=== PATIENT | male | born 1955 | race Caucasian/White ===

== ENCOUNTER 2022-06-07 00:18 | Inpatient (IN) | payer MEDICARE, OTHER, SELFPAY ==
[2022-06-07] VITALS (15 sets, daily range): BP systolic 100–159; BP diastolic 63–84; PULSE 68–96; RESP 16–29; TEMP 36.8–39.4; O2SAT 92–98; BMI 39.9; BMI 39.6
--- NOTE | 2022-06-07 00:48 | CT_ITS ---
STUDY: CT ABDOMEN AND PELVIS WITH CONTRAST REASON FOR EXAM: Male, 67 years old. abd pain RADIATION DOSAGE (If Supplied By Facility): CTDIvol = ( 17.06 ) mGy, DLP = ( 1440.35 ) mGycm TECHNIQUE: Transaxial images were obtained from the dome of the diaphragm to the symphysis pubis without oral contrast. IV 100mL Isovue-300 was administered. Sagittal and coronal images were reconstructed. Individualized dose optimization techniques were used for this CT. COMPARISON: None. FINDINGS: The visualized lung bases are unremarkable. The visualized portions of the heart are within normal limits. Normal liver. Normal gallbladder and extrahepatic biliary system. Normal spleen. Normal pancreas. Normal bilateral adrenal glands. Normal right kidney. Normal left kidney. Normal visualized stomach. Normal small intestine. There is wall thickening with adjacent fat stranding of the descending colon and sigmoid colon suggesting colitis. The appendix is visualized and appears normal. Normal abdominal aorta. Normal inferior vena cava. Enlargement of the left periaortic lymph node the largest lymph node measures approximately 1.9 x 1.2 cm may represent reactive lymphoid hyperplasia. Normal urinary bladder. Normal abdominal wall. Normal osseous structures. CT/Abdomen/Pelvis W IV Cont ONLY IMPRESSION: Multiple bilateral renal cysts the largest measures approximately 2.2 cm. There is wall thickening with adjacent fat stranding of the descending colon and sigmoid colon suggesting colitis. Enlargement of the left periaortic lymph node the largest lymph node measures approximately 1.9 x 1.2 cm. Short-term follow-up is recommended to exclude a neoplastic process. Electronically Signed: Christi Hansen MD at 2:29 EST ,
--- NOTE | 2022-06-07 00:48 | RAD_ITS ---
STUDY: X-RAY CHEST REASON FOR EXAM: Male, 67 years old. fever TECHNIQUE: Single AP portable view of the chest. COMPARISON: None. FINDINGS: Mediporte on the right side. The lungs are clear and expanded. There is no demonstrated pleural abnormality. Normal size heart. Normal mediastinum and gilmar. Normal visualized pulmonary arteries. Normal visualized aortic arch and descending thoracic aorta. Normal visualized thoracic spine. Normal visualized ribs, clavicles, and shoulders. There is no demonstrated abnormality of the visualized soft tissue structures of the upper abdomen. RAD/Chest PA and Lateral IMPRESSION: Normal x-ray examination of the chest. Electronically Signed: Christi Hansen MD at 1:51 EST ,
[2022-06-07 00:56] LABS: Absolute Lymphocyte Count 0.67 X10^3/uL (0.83-4.51); Absolute Neutrophil Count 0.1 X10^3/uL (2.0-7.7); Basophil# 0.01 X10^3/uL; Basophil% 0.9 % (0-1); Eosinophil# 0.02 X10^3/uL; Eosinophils% 1.8 % (0-5); Hematocrit 36.5 % (40-54); Hemoglobin 12.1 g/dL (13.0-16.5); Lymphocyte # 0.67 X10^3/ul (0.83-4.51); Lymphocyte % 60.4 % (19-41); Mean Corp Hgb Conc 33.2 g/dL (32-36); Mean Corpuscular Hgb 28.2 pg (27.0-32.0); Mean Corpuscular Volume 85.1 fL (80-94); Mean Platelet Vol. 10.8 fl (6.2-12.0); Monocyte# 0.35 X10^3/uL; Monocyte% 31.5 % (0-10); NRBC Flagged by Analyzer 0 % (0-5); Neutrophil # 0.06 X10^3/uL (2.7-7.7); Neutrophil % 5.4 % (47-70); POSITIVE COUNT YES; POSITIVE DIFFERENTIAL YES; POSITIVE MORPHOLOGY YES; Platelet Count 174 K/mm3 (150-450); RBC Distribution Width CV 14.6 % (11.6-14.6); RBC Distribution Width SD 44.9 fl (35.1-43.9); Red Blood Count 4.29 M/mm3 (4.6-6.2)
[2022-06-07 01:02] LABS: Mucous, Urine 0 SEEN /hpf (<or=2+); Squamous Epithelial Cells - UA 0 SEEN /hpf (0-5)
[2022-06-07 01:06] LABS: Anion Gap 8 (5-15); BUN 18 mg/dL (7-18); BUN/Creat Ratio 12.2 RATIO (10-20); Calcium,Total 8.5 mg/dL (8.5-10.1); Chloride 105 mmol/L (98-107); Creatinine, Serum 1.48 mg/dL (0.70-1.30); EST Glomerular Filtration Rate 51 mL/min (>60); Est Glom Filt Rate - Afr Amer 61 mL/min (>60); Estimated Creatinine Clearance 48.14 ml/min; Glucose 127 mg/dL (74-106); Potassium 3.4 mmol/L (3.5-5.1); Sodium Level 137 mmol/L (136-145)
[2022-06-07 01:08] LABS: Color, Urine Amber (Yellow); Glucose, Dipstick Normal (Normal); Ketone-Dipstick 5 mg/dl (Negative); Leukocyte Esterase-Dipstick 25 /ul (Negative); Nitrite-Dipstick Negative (Negative); Occult Blood-Urine 150 /ul (Negative); Protein-Dipstick 100 mg/dl (Negative); Urine Clarity Sl. Cloudy (Clear); Urine Urobilinogen 4 mg/dl (Normal)
[2022-06-07 01:10] LABS: Differential Indicated SCAN CRITERIA MET; White Blood Count 1.1 K/mm3 (4.4-11.0)
[2022-06-07 01:12] LABS: Differential Comment SCANNED
[2022-06-07] MEDS: Acetaminophen 500 MG Tablet 1000 MG PO (01:12)
[2022-06-07 01:14] LABS: Lactic Acid 1.1 mmol/L (0.4-1.9)
[2022-06-07] MEDS: 0.9% Normal Saline 1,000 ML 999 ML IV (01:16)
[2022-06-07 01:22] LABS: Urine Bilirubin Dipstick 1 mg/dL (Negative)
[2022-06-07 01:24] LABS: Amorphous Sediment 1+; Bacteria 3+ /hpf (None Seen); Red Blood Cells-Urine 5-10 SEEN /hpf (0-5); White Blood Cells 0-5 SEEN /hpf (0-5)
--- NOTE | 2022-06-07 02:56 | EX.ED.DYSGE1 ---
HPI History of Present Illness Chief Complaint: Fever Narrative Narrative: Patient is a 67-year-old male with past medical history of prostate cancer hypertension and gout. He states that he had his prostate removed in 2000 but over the last few years has been having elevation to his PSA and was diagnosed with recurrent prostate cancer and was failing Lupron shot so he was started on chemotherapy. He states his first chemotherapy injection was 1 week ago on May 30. He states that he seemed to be doing okay with persistent nausea and loose stool which he felt was normal following his chemo. However this evening he did not feel well and family took his temperature at home and it was elevated 103 and secondary to this he was brought to the hospital for evaluation [facility] Medical History Bone cancer CHF (congestive heart failure) Hyperlipemia Hypertension Prostate CA Home Medications abiraterone 500 mg tablet 1,000 mg PO DAILY 06/07/22 [History Last Taken Unknown] allopurinol 100 mg tablet 100 mg PO DAILY 06/07/22 [History Last Taken Unknown] aspirin 81 mg tablet,delayed release 81 mg PO DAILY 06/07/22 [History Last Taken Unknown] carvedilol 25 mg tablet 25 mg PO BID 06/07/22 [History Last Taken Unknown] dexamethasone 4 mg tablet 4 mg PO BID 06/07/22 [History Last Taken Unknown] ezetimibe 10 mg tablet 10 mg PO DAILY 06/07/22 [History Last Taken Unknown] furosemide 40 mg tablet 40 mg PO DAILY 06/07/22 [History Last Taken Unknown] isosorbide mononitrate 60 mg tablet,extended release 24 hr 60 mg PO DAILY 06/07/22 [History Last Taken Unknown] prednisone 5 mg tablet 5 mg PO BID 06/07/22 [History Last Taken Unknown] prochlorperazine maleate 10 mg tablet 10 mg PO Q6H PRN Nausea 06/07/22 [History Last Taken Unknown] rosuvastatin 20 mg tablet 20 mg PO DAILY 06/07/22 [History Last Taken Unknown] Allergy/AdvReac Type Severity Reaction Status Date / Time No Known Allergies Allergy Verified 06/07/22 00:21 Social History Smoking Status: Never smoker ROS [facility] ED Constitutional Constitutional ED: Reports chills and fever(s) ENT ENT ED: Denies sore throat Cardiovascular Cardiovascular: Denies chest pain Respiratory/Chest Respiratory/Chest: Reports cough; Denies dyspnea Gastrointestinal Gastrointestinal: Reports diarrhea and nausea; Denies abdominal pain or vomiting Genitourinary Genitourinary ED: Denies dysuria Musculoskeletal Musculoskeletal: Reports myalgias Integumentary Denies rash Neurologic Neurologic: Denies headache(s) Hematologic/Lymphatic Hematologic/Lymphatic: Denies easy bleeding or easy bruising EXAM Physical Exam Const Vital Signs: 06/07/22 00:19 06/07/22 00:21 06/07/22 00:23 Temperature 103 F H 103 F H Temperature Source Oral Oral Pulse Rate 96 93 Respiratory Rate 22 H 22 H Respiratory Effort Normal Non-Labored Respiratory Pattern Normal Blood Pressure 148/76 H 148/76 H Blood Pressure Mean 100 100 Pulse Ox 95 95 Oxygen Delivery Method Room Air Room Air 06/07/22 01:19 06/07/22 02:00 06/07/22 03:57 Temperature 100.1 F H Temperature Source Oral Pulse Rate 84 81 Respiratory Rate 29 H 21 H 16 Respiratory Effort Respiratory Pattern Blood Pressure 114/64 119/65 Blood Pressure Mean 80 83 Pulse Ox 94 93 Oxygen Delivery Method Room Air Room Air 06/07/22 04:45 06/07/22 04:46 Temperature 99.1 F Temperature Source Oral Pulse Rate 82 Respiratory Rate 24 H Respiratory Effort Respiratory Pattern Blood Pressure 148/73 H 148/73 H Blood Pressure Mean 98 98 Pulse Ox 97 Oxygen Delivery Method Room Air Positive well nourished, well developed and obese General Appearance ED: well developed Nutritional Appearance: obese HEENT Reports dry mucous membranes HEENT Narrative: Mucous membranes are dry and tacky without secondary changes to suggest infection and no airway edema or compromise Mouth ED: Yes dry mucous membranes Mouth: dry mucous membranes Eyes PERRL and EOMs intact bilaterally Neck supple and no JVD Chest Wall palpation of chest normal Chest Narrative: Patient has a port in the right chest wall with surrounding soft tissue that appears normal without secondary changes to suggest infection Resp Resp Narrative: Breath sounds are slight diminished throughout with faint rhonchi noted in bilateral bases but otherwise no nasal flaring or retractions. Patient does have mild tachypnea noted Cardio regular rate and regular rhythm Rate: other Other Details: Radial pulses are plus 2 out of 4 bilaterally are equal and symmetric GI non-tender, non-distended and no masses GI Narrative: Abdomen is soft nontender nondistended with hyperactive bowel sounds no voluntary guarding or rigidity no pulsatile mass or fluid Auscultation: normoactive bowel sounds Palpation: soft Extremity normal to inspection Neuro oriented x3 and CN's II-XII intact bilaterally Sensorium / Orientation: alert Psych mental status grossly normal Skin no rashes or lesions noted Skin Narrative: Skin turgor is increased MDM MDM MDM Narrative Medical decision making narrative: Patient is a 67-year-old male who is immunosuppressed secondary to chemotherapy. He presented with a fever of 103 and there was concern for neutropenic fever secondary to this. Basic blood work along with blood cultures and urine cultures as well as COVID and influenza swabs were obtained because of the fever. His white count is low at 1.1 and he is neutropenic with an absolute neutrophil count of 0.1. Secondary to his temperature and these findings he was started on vancomycin and Zosyn. He has been having a cough but his chest x-ray officially revealed no obvious infiltrate. He also reported loose stool/diarrhea so CT of the abdomen pelvis was obtained which showed changes consistent with colitis which could be inflammatory or infectious in nature. Urine sample showed bacteria but there is no white blood cells and patient has no urinary symptoms. At this time because of the neutropenic fever he is not safe for discharge even though vitals are stable and his temperature is improved with Tylenol. The case was discussed with oncology Dr. Garcia who agrees with admission and recommends 1 g of meropenem be added as well as 480 mcg of Granix. At this time the patient will need to be monitored in the hospital secondary to his neutropenic fever while antibiotics continue to be given and blood cultures and urine cultures are resulted. Because of this the case was discussed with medicine on-call. They agreed accept the patient at this time. As he is hemodynamically stable he does not need ICU will be placed in the progressive care unit for further observation and treatment. The plan of care was discussed with patient and family and they are agreeable to it. Lab Data Attestation: I reviewed the patient's lab results. Labs: Laboratory Results - last 24 hr 06/07/22 06/07/22 06/07/22 00:33 00:33 00:33 WBC 1.1 L* RBC 4.29 L Hgb 12.1 L Hct 36.5 L MCV 85.1 MCH 28.2 MCHC 33.2 RDW Std Deviation 44.9 H RDW Coeff of Tyler 14.6 Plt Count 174 MPV 10.8 Immature Gran % (Auto) 0.000 Neut % (Auto) 5.4 L Lymph % (Auto) 60.4 H [place] % (Auto) 31.5 H Eos % (Auto) 1.8 Baso % (Auto) 0.9 Absolute Neuts (auto) 0.1 L Absolute Lymphs (auto) 0.67 L Nucleated RBC % 0 Differential Comment SCANNED Diff Path Review May foll Sodium 137 Potassium 3.4 L Chloride 105 Carbon Dioxide 24.0 Anion Gap 8 BUN 18 Creatinine 1.48 H Estim Creat Clear Calc 48.14 Est GFR (MDRD) Af Amer 61 Est GFR (MDRD) Non-Af 51 L BUN/Creatinine Ratio 12.2 Glucose 127 H Lactic Acid 1.1 Calcium 8.5 Urine Color Urine Clarity Urine pH Ur Specific [place] Urine Protein Urine Glucose (UA) Urine Ketones Urine Occult Blood Urine Nitrite Urine Bilirubin Urine Urobilinogen Ur Leukocyte Esterase Urine RBC Urine WBC Ur Squamous Epith Cells Amorphous Sediment Urine Bacteria Urine Mucus 06/07/22 00:37 WBC RBC Hgb Hct MCV MCH MCHC RDW Std Deviation RDW Coeff of [place] Plt Count MPV Immature Gran % (Auto) Neut % (Auto) Lymph % (Auto) [place] % (Auto) Eos % (Auto) Baso % (Auto) Absolute Neuts (auto) Absolute Lymphs (auto) Nucleated RBC % Differential Comment Diff Path Review Sodium Potassium Chloride Carbon Dioxide Anion Gap BUN Creatinine Estim Creat Clear Calc Est GFR (MDRD) Af Amer Est GFR (MDRD) Non-Af BUN/Creatinine Ratio Glucose Lactic Acid Calcium Urine Color Genny Urine Clarity Sl. Cloudy Urine pH 6.0 Ur Specific [place] 1.020 Urine Protein 100 H Urine Glucose (UA) Normal Urine Ketones 5 H Urine Occult Blood 150 H Urine Nitrite Negative Urine Bilirubin 1 H Urine Urobilinogen 4 H Ur Leukocyte Esterase 25 H Urine RBC 5-10 SEEN Urine WBC 0-5 SEEN Ur Squamous Epith Cells 0 SEEN Amorphous Sediment 1+ Urine Bacteria 3+ Urine Mucus 0 SEEN Radiography Diagnostic Testing: Clinical Impression(s) from Imaging Studies Abdomen/Pelvis CT 06/07/22 00:48 IMPRESSION: Multiple bilateral renal cysts the largest measures approximately 2.2 cm. There is wall thickening with adjacent fat stranding of the descending colon and sigmoid colon suggesting colitis. Enlargement of the left periaortic lymph node the largest lymph node measures approximately 1.9 x 1.2 cm. Short-term follow-up is recommended to exclude a neoplastic process. Electronically Signed: Christi Hansen MD at 2:29 EST , Chest X-Ray 06/07/22 00:48 IMPRESSION: Normal x-ray examination of the chest. Electronically Signed: Christi Hansen MD at 1:51 EST , Chest x-ray as interpreted by the emergency medicine physician reveals hazy opacity in the retrocardiac space concerning for developing pneumonia versus atelectasis Discharge Plan Triage Chief Complaint: Fever ED Provider: Deacon Castillo Dx/Rx/DC Orders Clinical Impression: Neutropenic fever, Prostate cancer metastatic to bone, Colitis, Hypertension Primary Care Provider: Dulce Sood Disposition Disposition: Acute Care [facility]
[2022-06-07] MEDS: TBO-FILGRASTIM 480 MCG/0.8 ML ML SC (04:39)
--- NOTE | 2022-06-07 05:08 | HP.PCM.HOS_ITS ---
HPI - General General Date of Admission: 06/07/22 Date of Service: 06/07/22 Chief Complaint: Fever HPI Narrative TORIE GOLDEN, is a 67 M with a significant history of prostate cancer status post prostatectomy and Lupron for metastatic lesions who was started on a chemotherapy on 05/30/2022 presenting with a fever. Of note patient had a port placed 3 to 4 weeks ago. Associated with his symptoms is intermittent cough, nausea, and loose stools. Last time he had loose stools was about a day and a half prior to presentation. His was going to give him a kiss and realized that patient has a fever. Patient's home temperature was 103 Fahrenheit. Associated with symptom is chills and rigors. His temperature at the emergency department was also 103 Fahrenheit. Emergency department discussed the case with oncology who recommended Granix and meropenem. [facility] Medical History Bone cancer CHF (congestive heart failure) Hyperlipemia Hypertension Prostate CA Sleep apnea Home Medications abiraterone 500 mg tablet 1,000 mg PO DAILY 06/07/22 [History Last Taken Unkno wn] allopurinol 100 mg tablet 100 mg PO DAILY 06/07/22 [History Last Taken Unknown] aspirin 81 mg tablet,delayed release 81 mg PO DAILY 06/07/22 [History Last Taken Unknown] carvedilol 25 mg tablet 25 mg PO BID 06/07/22 [History Last Taken Unknown] dexamethasone 4 mg tablet 4 mg PO BID 06/07/22 [History Last Taken Unknown] ezetimibe 10 mg tablet 10 mg PO DAILY 06/07/22 [History Last Taken Unknown] furosemide 40 mg tablet 40 mg PO DAILY 06/07/22 [History Last Taken Unknown] isosorbide mononitrate 60 mg tablet,extended release 24 hr 60 mg PO DAILY 06/07/22 [History Last Taken Unknown] prednisone 5 mg tablet 5 mg PO BID 06/07/22 [History Last Taken Unknown] prochlorperazine maleate 10 mg tablet 10 mg PO Q6H PRN Nausea 06/07/22 [History Last Taken Unknown] rosuvastatin 20 mg tablet 20 mg PO DAILY 06/07/22 [History Last Taken Unknown] Allergy/AdvReac Type Severity Reaction Status Date / Time No Known Allergies Allergy Verified 06/07/22 05:57 Family History Other CVA (cerebral vascular accident) Cancer Diabetes Heart disease Hypertension Surgical History History of prostatectomy Social History Smoking Status: Never smoker ROS ROS Narrative Pertinent positives and pertinent negatives as noted in HPI. All other systems were reviewed and are negative Vital Signs Vital Signs Vital Signs: 06/07/22 00:19 06/07/22 00:21 06/07/22 00:23 Temperature 103 F H 103 F H Temperature Source Oral Oral Pulse Rate 96 93 Respiratory Rate 22 H 22 H Respiratory Effort Normal Non-Labored Respiratory Pattern Normal Blood Pressure 148/76 H 148/76 H Blood Pressure Mean 100 100 Pulse Ox 95 95 Oxygen Delivery Method Room Air Room Air 06/07/22 01:19 06/07/22 02:00 06/07/22 03:57 Temperature 100.1 F H Temperature Source Oral Pulse Rate 84 81 Respiratory Rate 29 H 21 H 16 Respiratory Effort Respiratory Pattern Blood Pressure 114/64 119/65 Blood Pressure Mean 80 83 Pulse Ox 94 93 Oxygen Delivery Method Room Air Room Air 06/07/22 04:45 06/07/22 04:46 Temperature 99.1 F Temperature Source Oral Pulse Rate 82 Respiratory Rate 24 H Respiratory Effort Respiratory Pattern Blood Pressure 148/73 H 148/73 H Blood Pressure Mean 98 98 Pulse Ox 97 Oxygen Delivery Method Room Air Weight Weight: 119.1 kg Body Mass Index (BMI) 39.9 Physical Exam Narrative Physical exam: General: Rigors well-nourished, well-developed. Head: Normocephalic, atraumatic, no tenderness Eyes: Vision is grossly intact. EOMI ENT, no trauma, dry mucous membranes, no rhinorrhea Neck: Nontender, No thyromegaly. CVS: Regular rate and rhythm. S1-S2 present. No murmur, gallop or rub. Respiratory : clear to auscultation bilaterally, chest wall nontender, no wheezing Abdomen: Soft, nontender, nondistended, normal bowel sounds, no masses : Deferred Back: Nontender, no CVA tenderness, no midline spinal tenderness, deformities, step-offs Extremities: Nontender full range of motion, no trauma Skin: Normal color, no trauma, abrasions Neuro: Alert, oriented, cranial nerves II through XII grossly intact. Psychiatry: Normal mood. Normal affect. Not depressed. Not anxious. Results Lab / Micro Data Result Diagrams: 06/07/22 00:33 06/07/22 00:33 Labs: Laboratory Results - last 24 hr 06/07/22 00:33: WBC 1.1 L*, RBC 4.29 L, Hgb 12.1 L, Hct 36.5 L, MCV 85.1, MCH 28.2, MCHC 33.2, RDW Std Deviation 44.9 H, RDW Coeff of Tyler 14.6, Plt Count 174, MPV 10.8, Immature Gran % (Auto) 0.000, Neut % (Auto) 5.4 L, Lymph % (Auto) 60.4 H, [place] % (Auto) 31.5 H, Eos % (Auto) 1.8, Baso % (Auto) 0.9, Absolute Neuts (auto) 0.1 L, Absolute Lymphs (auto) 0.67 L, Nucleated RBC % 0, Differential Comment SCANNED, Diff Path Review September06/07/22 00:33: Sodium 137, Potassium 3.4 L, Chloride 105, Carbon Dioxide 24.0, Anion Gap 8, BUN 18, Creatinine 1.48 H, Estim Creat Clear Calc 48.14, Est GFR (MDRD) Af Amer 61, Est GFR (MDRD) Non-Af 51 L, BUN/Creatinine Ratio 12.2, Glucose 127 H, Calcium 8.5 06/07/22 00:33: Lactic Acid 1.1 06/07/22 00:37: Urine Color Genny, Urine Clarity Sl. Cloudy, Urine pH 6.0, Ur Specific [place] 1.020, Urine Protein 100 H, Urine Glucose (UA) Normal, Urine Ketones 5 H, Urine Occult Blood 150 H, Urine Nitrite Negative, Urine Bilirubin 1 H, Urine Urobilinogen 4 H, Ur Leukocyte Esterase 25 H, Urine RBC 5-10 SEEN, Urine WBC 0-5 SEEN, Ur Squamous Epith Cells 0 SEEN, Amorphous Sediment 1+, Urine Bacteria 3+, Urine Mucus 0 SEEN Micro: Microbiology 06/07/22 00:55 Nasal Secretion SARS-CoV-2 & FLU Antigen (Rapid) - Final Radiology Impression Abdomen/Pelvis CT 06/07/22 00:48 IMPRESSION: Multiple bilateral renal cysts the largest measures approximately 2.2 cm. There is wall thickening with adjacent fat stranding of the descending colon and sigmoid colon suggesting colitis. Enlargement of the left periaortic lymph node the largest lymph node measures approximately 1.9 x 1.2 cm. Short-term follow-up is recommended to exclude a neoplastic process. Electronically Signed: Christi Hansen MD at 2:29 EST , Chest X-Ray 06/07/22 00:48 IMPRESSION: Normal x-ray examination of the chest. Electronically Signed: Christi Hansen MD at 1:51 EST , Assessment & Plan Assessment/Plan (1) Neutropenic fever: (2) FREDA (acute kidney injury): (3) Hypertension: PLAN: Plan Neutropenic fever Patient with absolute neutrophil count of 100 with white count of 1100. Of note his white count on 05/30/2022 was 20,260. T-max of 103 Fahrenheit at emergency department. Chest x-ray was interpreted independently. I agree with the radiologist interpretation of normal x-ray examination of the chest. Urinalysis with urine protein of 100; ketones of 5; urine occult blood of 150; urine leukocyte esterase of 25; normal urine white blood cells and urine bacteria of 3+. Denies any urinary symptoms. Urine culture and blood culture ordered emergency department, follow. SARS-CoV-2 and influenza antigen negative. Received vancomycin and Zosyn at the emergency department. Also received Merrem at the emergency department. Merrem 1 g every 8 hours ordered per heme-onc r ecommendations. Granix daily ordered per heme-onc recommendations. Heme-onc consult. Trend CBC. FREDA on CKD stage II His creatinine presentation on presentation was 1.48. BUN is 18. BUN over creatinine is 12.2. Review of community records show that his creatinine on 05/08/2022 was 1.29 and on 05/04/2022 was 1.18. Mild FREDA. Gentle IV hydration. Avoid nephrotoxic's. Trend BMP. Hypertension Blood pressure is not within goal Metoprolol and isosorbide continued. Lasix held as needed hydralazine ordered. Trend blood pressure and adjust blood pressure medications. DVT prophylaxis: Subcutaneous Lovenox ordered Charges/Coding Visit Charges Inpatient E&M: 46664 Init Hosp L3
[2022-06-07] MEDS: 0.9% Normal Saline 1,000 ML 100 ML IV ×2 (06:14→16:53)
[2022-06-07] MEDS: Enoxaparin 40 MG/0.4 ML Syringe SC (08:47)
[2022-06-07] MEDS: Acetaminophen 325 MG Tablet 650 MG PO ×2 (08:47→16:52)
[2022-06-07] MEDS: Ezetimibe 10 MG Tablet PO (08:48)
[2022-06-07] MEDS: dexAMETHasone 4 MG Tablet PO ×2 (08:48→16:54)
[2022-06-07] MEDS: Carvedilol 25 MG Tablet PO ×2 (08:48→16:54)
[2022-06-07] MEDS: Isosorbide Mononitrate 60 MG Tablet PO (08:48)
[2022-06-07] MEDS: Allopurinol 100 MG Tablet PO (08:48)
[2022-06-07] MEDS: Aspirin E.C. 81 MG Tablet PO (08:48)
--- NOTE | 2022-06-07 12:44 | CASEMGMT ---
RN?CM?RODDING MACHINE TENDER?CM?spoke with patient for initial transition planning/care coordination?assessment.?RN?CM?introduced self and role at [facility].? Pt voices understanding and consents to?assessment?at this time.? Pt is A/O at this time and answers all questions appropriately.?? Care providers, pharmacy, and demographics verified/updated at this time.? PCP:?Dr Amber Sood Specialists:?Dr Carmona-oncology, Dr Mandujano-nephrology, [place]. Dr Arriaga-cardiology, [facility] Preferred Pharmacy:?[facility] Insurance:?MCR, MMO Prescription Benefit:??Yes Living Will/HPOA:??Has both LW and HCPOA, who is his , Jazzy. Dtr, Cori, 1st alternative. LNOK:?, Jazzy. 3 sons: Orion, Zurdo, Juan F. Daughter: Cori. Living Arrangements:?Lives w/ in ranch-style home w/2 steps to enter. Denies difficulty w/stairs. Independent. Transportation:?Pt states drives self and states no transportation concerns at this time.?? also drives DME: ?Uses a CPAP HHC/SNF:?No hx of either. Denies need for HHC. Pt wishes to return home and states has no concerns with going home at time of discharge.??CM?to follow for any discharge planning needs.? Pt voices no concerns/needs at this time.? Advised pt to ask for?CM?if any questions/concerns/needs arise.? Voices understanding.? PLAN:??Home Vidal HERRERAN?RN?CM
[2022-06-07] MEDS: Ensure Plus High Protein 120 ML LIQUID PO ×2 (13:29→16:58)
[2022-06-07] MEDS: Atorvastatin Calcium 40 MG Tablet PO (21:38)
[2022-06-08] VITALS (7 sets, daily range): BP systolic 127–140; BP diastolic 67–73; PULSE 63–71; RESP 16–22; TEMP 36.6–37; O2SAT 92–96
[2022-06-08] MEDS: 0.9% Normal Saline 1,000 ML 100 ML IV (02:56)
[2022-06-08 05:41] LABS: Absolute Lymphocyte Count 0.35 X10^3/uL (0.83-4.51); Absolute Neutrophil Count 0.8 X10^3/uL (2.0-7.7); Basophil# 0.03 X10^3/uL; Basophil% 1.7 % (0-1); Hematocrit 31.4 % (40-54); Hemoglobin 10.3 g/dL (13.0-16.5); Lymphocyte # 0.35 X10^3/ul (0.83-4.51); Lymphocyte % 20.1 % (19-41); Mean Corp Hgb Conc 32.8 g/dL (32-36); Mean Corpuscular Hgb 28.1 pg (27.0-32.0); Mean Corpuscular Volume 85.8 fL (80-94); Mean Platelet Vol. 10.3 fl (6.2-12.0); Monocyte% 28.7 % (0-10); NRBC Flagged by Analyzer 0 % (0-5); Neutrophil # 0.81 X10^3/uL (2.7-7.7); Neutrophil % 46.6 % (47-70); POSITIVE DIFFERENTIAL YES; POSITIVE MORPHOLOGY YES; Platelet Count 121 K/mm3 (150-450); RBC Distribution Width CV 14.3 % (11.6-14.6); RBC Distribution Width SD 44.5 fl (35.1-43.9); Red Blood Count 3.66 M/mm3 (4.6-6.2); White Blood Count 1.7 K/mm3 (4.4-11.0)
[2022-06-08 05:47] LABS: Differential Indicated SCAN CRITERIA MET
[2022-06-08 06:04] LABS: Anion Gap 9 (5-15); BUN 19 mg/dL (7-18); BUN/Creat Ratio 17.6 RATIO (10-20); Calcium,Total 7.9 mg/dL (8.5-10.1); Chloride 108 mmol/L (98-107); Creatinine, Serum 1.08 mg/dL (0.70-1.30); EST Glomerular Filtration Rate 73 mL/min (>60); Est Glom Filt Rate - Afr Amer 88 mL/min (>60); Estimated Creatinine Clearance 65.97 ml/min; Glucose 144 mg/dL (74-106); Potassium 3.5 mmol/L (3.5-5.1); Sodium Level 138 mmol/L (136-145)
[2022-06-08 06:13] LABS: Differential Comment SCANNED; Platelet Estimate SLT DEC (ADEQ)
[2022-06-08] MEDS: Aspirin E.C. 81 MG Tablet PO (08:17)
[2022-06-08] MEDS: Carvedilol 25 MG Tablet PO ×2 (08:17→17:19)
[2022-06-08] MEDS: Enoxaparin 40 MG/0.4 ML Syringe SC (08:17)
[2022-06-08] MEDS: Ezetimibe 10 MG Tablet PO (08:17)
[2022-06-08] MEDS: dexAMETHasone 4 MG Tablet PO ×2 (08:17→17:19)
[2022-06-08] MEDS: Isosorbide Mononitrate 60 MG Tablet PO (08:17)
[2022-06-08] MEDS: Allopurinol 100 MG Tablet PO (08:17)
[2022-06-08] MEDS: Ensure Plus High Protein 120 ML LIQUID PO ×3 (08:21→17:18)
[2022-06-08] MEDS: TBO-FILGRASTIM 480 MCG/0.8 ML ML SC (08:21)
[2022-06-08 10:10] LABS: Pathologist Review Reviewed
--- NOTE | 2022-06-08 11:44 | PN.HOSP_ITS ---
Subjective Subjective Doing well, denies any abdominal pain. No issues overnight Objective Data Objective Data Vital Signs: Vital Signs Temp Pulse Resp BP Pulse Ox O2 Del Method 98.5 F 63 22 H 130/73 H 93 Room Air 06/08/22 08:13 06/08/22 08:13 06/08/22 08:13 06/08/22 08:13 06/08/22 08:13 06/08/22 08:13 Oxygen Delivery Method Room Air Weight: 261 lb 0.437 oz Body Mass Index (BMI) 39.6 Intake & Output: Intake and Output for Last 24 Hours 06/07/22 06/08/22 06/09/22 03:59 03:59 03:59 Intake Total 50 / 50 4495 / 4495 Balance 50 / 50 4495 / 4495 Medical Nutrition Assessment Dietitian: Malnutrition Criteria Met Start: 06/07/22 13:46 Freq: Status: Active Protocol: Document 06/07/22 13:46 AG (Rec: 06/07/22 13:47 AG [id number]) Nutrition Malnutrition Evidence of Malnutrition Exists Yes Malnutrition (severe): Acute Illness/Injury Evidenced By Suboptimal Energy Intake ( Severe),Weight Loss (Severe) Clinical Problem Acute Disease or Injury Related Malnutrition Etiology severe, acute malnutrition related to inadequate energy intake after chemotherapy Signs/Symptoms as evidenced by estimated PO intake meeting <50% of estimated energy needs x 1 week; unintentional wt loss of 9#/3.3% x 1 week Status Active Problem Recommendation Dietitian Recommendations/Changes will liberalize diet to regular given acute malnutrition; will adjust ONS to Ensure Plus High Protein 120mL 4x/day Lab / Micro Data Result Diagrams: 06/08/22 04:36 06/08/22 04:36 Labs: Laboratory Results - last 24 hr 06/07/22 00:33: Diff Path Review Reviewed 06/08/22 04:36: Sodium 138, Potassium 3.5, Chloride 108 H, Carbon Dioxide 21.0, Anion Gap 9, BUN 19 H, Creatinine 1.08, Estim Creat Clear Calc 65.97, Est GFR (MDRD) Af Amer 88, Est GFR (MDRD) Non-Af 73, BUN/Creatinine Ratio 17.6, Glucose 144 H, Calcium 7.9 L 06/08/22 04:36: WBC 1.7 L, RBC 3.66 L, Hgb 10.3 L, Hct 31.4 L, MCV 85.8, MCH 28.1, MCHC 32.8, RDW Std Deviation 44.5 H, RDW Coeff of Tyler 14.3, Plt Count 121 L, MPV 10.3, Immature Gran % (Auto) 2.900 H, Neut % (Auto) 46.6 L, Lymph % (Auto) 20.1, Carver % (Auto) 28.7 H, Eos % (Auto) 0.0, Baso % (Auto) 1.7 H, Absol noe Neuts (auto) 0.8 L, Absolute Lymphs (auto) 0.35 L, Nucleated RBC % 0, Differential Comment SCANNED, Platelet Estimate SLT DEC Micro: Microbiology 06/07/22 00:37 Urine, Clean Catch Urine Culture - Preliminary Culture exhibits no growth. 06/07/22 00:55 Nasal Secretion SARS-CoV-2 & FLU Antigen (Rapid) - Final Physical Exam Narrative General: Alert, Oriented x3, Cooperative, No apparent distress HEENT: Atraumatic, PERRLA, EOMI, Normocephalic Oral: Moist Mucosa Neck: Supple, No JVD Lungs: Diminished n, Normal air movement, No rhonchi, No wheeze, No rales Cardiovascular: Regular rate, Regular Rhythm, Normal S1, Normal S2, No murmurs Abdomen: Soft, Non Tender, Non-Distended, No Hepato-splenomegaly Extremities: No edema, Capillary Refill Less than 3 Seconds Skin: No rashes, No breakdown Musculoskeletal: No Tenderness to Palpation of Joints or Extremities Neurological: Cranial nerves II-XII grossly intact, Motor Exam 5/5 strength throughout, Sensory exam intact to light touch and pain Psych/Mental Status: Normal Affect, Appropriate Assessment & Plan Assessment/Plan (1) Neutropenic fever: (2) FREDA (acute kidney injury): (3) Hypertension: PLAN: Plan 1. Neutropenic fever secondary to infectious colitis/FREDA ? We will continue with p.o. antibiotics on discharge ? Continue with Granix, once his white count is greater than the thousand and his fevers have resolved, can plan for discharge ? Denies any significant abdominal pain ? Continue with his current antibiotics ? Renal function is back to baseline continue with IV fluids 2. HTN/HLD ? Blood pressures are stable ? Continue with his home cholesterol medications ? Continue his home blood pressure medications ? Given his IV fluids will hold Lasix 3. Prostate cancer ? He is status post prostatectomy several years ago ? PSA started rising recently so he started on chemotherapy received his first dose about 7 to 10 days prior to admission to the hospital ? Continue with his Decadron as well as his abiraterone ? Continue with allopurinol DVT: Lovenox Charges/Coding Visit Charges Inpatient E&M: 02762 Subs Hosp L2
[2022-06-08] MEDS: Atorvastatin Calcium 40 MG Tablet PO (20:52)
[2022-06-08] MEDS: 0.9% Saline Lock 10 ML Syringe IV (22:04)
[2022-06-09] MEDS: MELATONIN 3 MG TABLET PO (01:03)
[2022-06-09 03:00] VITALS: BP 129/62; PULSE 69; RESP 16; TEMP 37; O2SAT 95
[2022-06-09 07:27] LABS: Anion Gap 5 (5-15); BUN 24 mg/dL (7-18); BUN/Creat Ratio 22.9 RATIO (10-20); Calcium,Total 8.3 mg/dL (8.5-10.1); Chloride 113 mmol/L (98-107); Creatinine, Serum 1.05 mg/dL (0.70-1.30); EST Glomerular Filtration Rate 75 mL/min (>60); Est Glom Filt Rate - Afr Amer 91 mL/min (>60); Estimated Creatinine Clearance 67.86 ml/min; Glucose 162 mg/dL (74-106); Potassium 3.7 mmol/L (3.5-5.1); Sodium Level 141 mmol/L (136-145)
[2022-06-09 07:56] VITALS: BP 150/88; PULSE 66; RESP 18; TEMP 36.7; O2SAT 96
[2022-06-09 08:02] VITALS: O2SAT 94
[2022-06-09] MEDS: Allopurinol 100 MG Tablet PO (08:03)
[2022-06-09] MEDS: Aspirin E.C. 81 MG Tablet PO (08:03)
[2022-06-09] MEDS: dexAMETHasone 4 MG Tablet PO (08:03)
[2022-06-09] MEDS: Carvedilol 25 MG Tablet PO (08:04)
[2022-06-09 08:21] LABS: Hematocrit 33.5 % (40-54); Hemoglobin 10.9 g/dL (13.0-16.5); Mean Corp Hgb Conc 32.5 g/dL (32-36); Mean Corpuscular Hgb 27.9 pg (27.0-32.0); Mean Corpuscular Volume 85.9 fL (80-94); POSITIVE COUNT YES; POSITIVE MORPHOLOGY YES; Platelet Count 188 K/mm3 (150-450); RBC Distribution Width CV 14.5 % (11.6-14.6); RBC Distribution Width SD 45.3 fl (35.1-43.9); White Blood Count 14.7 K/mm3 (4.4-11.0)
[2022-06-09 08:26] LABS: Differential Indicated MANUAL DIFF
[2022-06-09 08:31] LABS: Blast 1 % (0-0); Lymphocyte 11 % (19-41); Metamyelocyte 12 % (0-1); Monocyte 4 % (0-10); Myelocyte 2 % (0-0); Neutrophil-Band 15 % (0-5); Neutrophil-Segmented 54 % (47-70); Promyelocyte 1 % (0-0); Total Cells Counted 100 (MANUAL DIFF)
[2022-06-09 08:32] LABS: Anisocytosis 1+; Platelet Estimate ADEQUATE (ADEQ); Red Cell Morphology N CHROM NORMAL (NORM C&C)
[2022-06-09 08:33] LABS: Differential Comment 14.7
[2022-06-09 08:34] LABS: Absolute Neutrophil Count 10.1 X10^3/uL (2.0-7.7)
[2022-06-09] MEDS: 0.9% Saline Lock 10 ML Syringe IV (08:58)
[2022-06-09] MEDS: Ezetimibe 10 MG Tablet PO (08:59)
[2022-06-09] MEDS: Isosorbide Mononitrate 60 MG Tablet PO (08:59)
[2022-06-09] MEDS: Enoxaparin 40 MG/0.4 ML Syringe SC (08:59)
[2022-06-09] MEDS: TBO-FILGRASTIM 480 MCG/0.8 ML ML SC (09:03)
[2022-06-09] MEDS: Ensure Plus High Protein 120 ML LIQUID PO (09:03)
[2022-06-09 09:34] LABS: Hematocrit 33.9 % (40-54); Hemoglobin 11.3 g/dL (13.0-16.5); Mean Corp Hgb Conc 33.3 g/dL (32-36); Mean Corpuscular Hgb 28.6 pg (27.0-32.0); Mean Corpuscular Volume 85.8 fL (80-94); Mean Platelet Vol. 10.8 fl (6.2-12.0); POSITIVE COUNT YES; POSITIVE MORPHOLOGY YES; Platelet Count 181 K/mm3 (150-450); RBC Distribution Width CV 14.7 % (11.6-14.6); RBC Distribution Width SD 46.4 fl (35.1-43.9); Red Blood Count 3.95 M/mm3 (4.6-6.2); White Blood Count 16.3 K/mm3 (4.4-11.0)
[2022-06-09 09:37] LABS: Differential Indicated MANUAL DIFF
[2022-06-09 10:21] LABS: Blast 1 % (0-0); Lymphocyte 5 % (19-41); Metamyelocyte 8 % (0-1); Myelocyte 5 % (0-0); Neutrophil-Band 12 % (0-5); Neutrophil-Segmented 69 % (47-70); Platelet Estimate ADEQUATE (ADEQ); Red Cell Morphology NORM C+C NORMAL (NORM C&C); Total Cells Counted 100 (MANUAL DIFF)
[2022-06-09 10:22] LABS: Absolute Lymphocyte Count 0.81 X10^3/uL (0.83-4.51); Absolute Neutrophil Count 13.2 X10^3/uL (2.0-7.7); Lymphocyte # 0.81 X10^3/ul (0.83-4.51)
--- NOTE | 2022-06-09 10:49 | DCINST_ITS ---
Discharge Instructions Diet Discharge Diet: Light diet - advance as tolerated Activity Discharge Activity: Return to Normal Activity Dressing / Incision Call your doctor if you observe: Fever of 101 or Higher, Shortness of breath, Dizziness, Fainting spells, Swelling in the ankles, Chest pain and Increased palpitations (irregular heartbeat) Follow Up Care Test Results: Test results from this visit will be discussed in further detail at your follow- up appointment, if applicable. Discharge Plan Admission Admit Date/Time: 06/07/22 04:51 Attending Provider: Carlos Alberto Junior Primary Care Provider: Dulce Sood Consulting Providers: Chase Anaya Discharge Orders/Prescriptions Prescriptions: New ciprofloxacin HCl 500 mg tablet 500 mg PO BID 7 Days Qty: 14 0RF metronidazole 500 mg tablet 500 mg PO Q8H 7 Days Qty: 21 0RF Continued furosemide 40 mg Tablet 40 mg PO DAILY carvedilol 25 mg Tablet 25 mg PO BID Rx Instructions: must administer with a meal/food prednisone 5 mg Tablet 5 mg PO BID prochlorperazine maleate 10 mg Tablet 10 mg PO Q6H PRN (Reason: Nausea) allopurinol 100 mg Tablet 100 mg PO DAILY aspirin 81 mg Tablet,Delayed Release (Dr/Ec) 81 mg PO DAILY isosorbide mononitrate 60 mg Tablet Extended Release 24 Hr 60 mg PO DAILY dexamethasone 4 mg Tablet 4 mg PO BID ezetimibe 10 mg Tablet 10 mg PO DAILY rosuvastatin 20 mg Tablet 20 mg PO DAILY abiraterone 500 mg Tablet 1,000 mg PO DAILY Rx Instructions: must be taken on empty stomach, at least 1 hr before or 2 hrs after a meal/food Referrals / Follow Up: Dulce Sood DO [Primary Care Provider] - Within 1 Week Disposition Disposition (needs filled in before D/C Order can be placed): Home, Self Care
--- NOTE | 2022-06-09 10:55 | PCM.DC.SUM ---
Providers Date of Admission: 06/07/22 Primary Care Physician: Dr. Dulce Sood, DO Reason For Visit: NEUROTROPENIC FEVER Diagnosis Discharge Diagnosis (1) Neutropenic fever: Status: Acute Code(s): D70.9 - Neutropenia, unspecified; R50.81 - Fever presenting with conditions classified elsewhere (2) FREDA (acute kidney injury): Status: Acute Code(s): N17.9 - Acute kidney failure, unspecified (3) Hypertension: Status: Chronic Code(s): I10 - Essential (primary) hypertension Plan 1. Neutropenic fever secondary to infectious colitis/FREDA ? We will continue with p.o. antibiotics on discharge ? Continue with Granix, once his white count is greater than the thousand and his fevers have resolved, can plan for discharge ? Denies any significant abdominal pain ? Continue with his current antibiotics ? Renal function is back to baseline continue with IV fluids 2. HTN/HLD ? Blood pressures are stable ? Continue with his home cholesterol medications ? Continue his home blood pressure medications ? Given his IV fluids will hold Lasix 3. Prostate cancer ? He is status post prostatectomy several years ago ? PSA started rising recently so he started on chemotherapy received his first dose about 7 to 10 days prior to admission to the hospital ? Continue with his Decadron as well as his abiraterone ? Continue with allopurinol DVT: Lovenox Medications at Discharge Home Medications abiraterone 500 mg tablet 1,000 mg PO DAILY 06/07/22 allopurinol 100 mg tablet 100 mg PO DAILY 06/07/22 aspirin 81 mg tablet,delayed release 81 mg PO DAILY 06/07/22 carvedilol 25 mg tablet 25 mg PO BID 06/07/22 dexamethasone 4 mg tablet 4 mg PO BID 06/07/22 ezetimibe 10 mg tablet 10 mg PO DAILY 06/07/22 furosemide 40 mg tablet 40 mg PO DAILY 06/07/22 isosorbide mononitrate 60 mg tablet,extended release 24 hr 60 mg PO DAILY 06/07/22 prednisone 5 mg tablet 5 mg PO BID 06/07/22 prochlorperazine maleate 10 mg tablet 10 mg PO Q6H PRN Nausea 06/07/22 rosuvastatin 20 mg tablet 20 mg PO DAILY 06/07/22 ciprofloxacin HCl 500 mg tablet 500 mg PO BID 7 days #14 tabs 06/09/22 metronidazole 500 mg tablet 500 mg PO Q8H 7 days #21 tabs 06/09/22 Hospital Course Operations None Procedures None Summary of Care Provided Minutes Spent on Discharge: 35 Hospital Course: Per HPI: TORIE GOLDEN, is a 67 M with a significant history of prostate cancer status post prostatectomy and Lupron for metastatic lesions who was started on a chemotherapy on 05/30/2022 presenting with a fever.? Of note patient had a port placed 3 to 4 weeks ago. Associated with his symptoms is intermittent cough, nausea, and loose stools.? Last time he had loose stools was about a day and a half prior to presentation.? His was going to give him a kiss and realized that patient has a fever.? Patient's? home temperature was 103 Fahrenheit.? Associated with symptom is chills and rigors. His temperature at the emergency department was also 103 Fahrenheit.? Emergency department? discussed the case with oncology who recommended Granix and meropenem. Hospital Course: 1.? Neutropenic fever secondary to infectious colitis/FREDA ? We will continue with p.o. antibiotics on discharge ?White count today on the day of discharge is well over 10,000 and his absolute neutrophils is also extremely elevated we will discontinue Granix ? Denies any significant abdominal pain ?Renal function is back to normal ? Discussed with him the plan for discharge today and he both he and his expressed understanding of the risk benefits of going home and are okay with him going home today. We will recommend Cipro and Flagyl for 7 more days to complete a course for his likely infectious colitis. His fevers have resolved as has his neutropenia and he will be able to restart all of his home medications on discharge. I do recommend that he follow-up with his PCP in 3 to 5 days with outpatient monitoring of his renal function since she did come in with an FREDA and he is on Lasix as an outpatient. 2.? HTN/HLD ? Blood pressures are stable ? Continue with his home cholesterol medications ? Continue his home blood pressure medications ?Can resume Lasix on discharge 3.? Prostate cancer ? He is status post prostatectomy several years ago ? PSA started rising recently so he started on chemotherapy received his first dose about 7 to 10 days prior to admission to the hospital ? Continue with his Decadron as well as his abiraterone ? Continue with allopurinol Physical Exam Narrative General: Alert, Oriented x3, Cooperative, No apparent distress HEENT: Atraumatic, PERRLA, EOMI, Normocephalic Oral: Moist Mucosa Neck: Supple, No JVD Lungs: Diminished, Normal air movement, No rhonchi, No wheeze, No rales Cardiovascular: Regular rate, Regular Rhythm, Normal S1, Normal S2, No murmurs Abdomen: Soft, Non Tender, Non-Distended, No Hepato-splenomegaly Extremities: No edema, Capillary Refill Less than 3 Seconds Skin: No rashes, No breakdown Musculoskeletal: No Tenderness to Palpation of Joints or Extremities Neurological: Cranial nerves II-XII grossly intact, Motor Exam 5/5 strength throughout, Sensory exam intact to light touch and pain Psych/Mental Status: Normal Affect, Appropriate Medical Records Data Medical Nutrition Assessment Dietitian: Malnutrition Criteria Met Start: 06/07/22 13:46 Freq: Status: Active Protocol: Document 06/07/22 13:46 AG (Rec: 06/07/22 13:47 AG [id number]) Nutrition Malnutrition Evidence of Malnutrition Exists Yes Malnutrition (severe): Acute Illness/Injury Evidenced By Suboptimal Energy Intake ( Severe),Weight Loss (Severe) Clinical Problem Acute Disease or Injury Related Malnutrition Etiology severe, acute malnutrition related to inadequate energy intake after chemotherapy Signs/Symptoms as evidenced by estimated PO intake meeting <50% of estimated energy needs x 1 week; unintentional wt loss of 9#/3.3% x 1 week Status Active Problem Recommendation Dietitian Recommendations/Changes will liberalize diet to regular given acute malnutrition; will adjust ONS to Ensure Plus High Protein 120mL 4x/day Weight / BMI Weight Weight: 261 lb 0.437 oz Body Mass Index (BMI) 39.6 ABG / Lab / Microbiology Data Result Diagrams: 06/09/22 09:10 06/09/22 06:23 Laboratory: Laboratory Results - last 24 hr 06/09/22 06:23: WBC Cancelled, Corrected WBC Cancelled, RBC Cancelled, Hgb Cancelled, Hct Cancelled, MCV Cancelled, MCH Cancelled, MCHC Cancelled, RDW Std Deviation Cancelled, RDW Coeff of Tyler Cancelled, Plt Count Cancelled, MPV Cancelled, Immature Gran % (Auto) Cancelled, Neut % (Auto) Cancelled, Lymph % (Auto) Cancelled, Luna % (Auto) Cancelled, Eos % (Auto) Cancelled, Baso % (Auto) Cancelled, Absolute Neuts (auto) Cancelled, Absolute Lymphs (auto) Cancelled, Total Counted Cancelled, Neutrophils % (Manual) Cancelled, Band Neutrophils % Cancelled, Lymphocytes % (Manual) Cancelled, Monocytes % (Manual) Cancelled, Eosinophils % (Manual) Cancelled, Basophils % (Manual) Cancelled, Metamyelocytes % Cancelled, Myelocytes % Cancelled, Promyelocytes % Cancelled, Blast Cells % Cancelled, Plasma Cell % (Manual) Cancelled, Other Cells % Cancelled, Nucleated RBC % Cancelled, Nucleated RBCs/100 WBC Cancelled, Differential Comment Cancelled, Diff Path Review Cancelled, Hypersegmented Neuts Cancelled, Atypical Lymphocytes Cancelled, Reactive Lymphocytes Cancelled, Smudge Cells Cancelled, Toxic Granulation Cancelled, Toxic Vacuolation Cancelled, Dohle Bodies Cancelled, Denys Rods Cancelled, Platelet Estimate Cancelled, Plt Morphology Comment Cancelled, RBC Morphology Cancelled, Polychromasia Cancelled, Hypochromasia Cancelled, Poikilocytosis Cancelled, Basophilic Stippling Cancelled, Anisocytosis Cancelled, Microcytosis Cancelled, Macrocytosis Cancelled, Spherocytes Cancelled, Sickle Cells Cancelled, Target Cells Cancelled, Tear Drop Cells Cancelled, Ovalocytes Cancelled, Stomatocytes Cancelled, [place] Bodies Cancelled, [place] Cells Cancelled, Bite Cells Cancelled, Crenated Cell Cancelled, Acanthocytes (Spur) Cancelled, Rouleaux Cancelled, Schistocytes Cancelled 06/09/22 06:23: Sodium 141, Potassium 3.7, Chloride 113 H, Carbon Dioxide 23.0, Anion Gap 5, BUN 24 H, Creatinine 1.05, Estim Creat Clear Calc 67.86, Est GFR (MDRD) Af Amer 91, Est GFR (MDRD) Non-Af 75, BUN/Creatinine Ratio 22.9 H, Glucose 162 H, Calcium 8.3 L 06/09/22 06:23: WBC 14.7 H, RBC 3.90 L, Hgb 10.9 L, Hct 33.5 L, MCV 85.9, MCH 27.9, MCHC 32.5, RDW Std Deviation 45.3 H, RDW Coeff of Tyler 14.5, Plt Count 188, MPV 11.0, Neut % (Auto) Not Reportable, Absolute Neuts (auto) 10.1 H, Absolute Lymphs (auto) 1.60, Total Counted 100, Neutrophils % (Manual) 54, Band Neutrophils % 15 H, Lymphocytes % (Manual) 11 L, Monocytes % (Manual) 4, Metamyelocytes % 12 H, Myelocytes % 2 H, Promyelocytes % 1 H, Blast Cells % 1 H*, Differential Comment 14.7, Diff Path Review May foll, Platelet Estimate ADEQUATE, RBC Morphology N CHROM, Anisocytosis 1+ 06/09/22 09:10: WBC 16.3 H, RBC 3.95 L, Hgb 11.3 L, Hct 33.9 L, MCV 85.8, MCH 28.6, MCHC 33.3, RDW Std Deviation 46.4 H, RDW Coeff of Tyler 14.7 H, Plt Count 181, MPV 10.8, Neut % (Auto) Not Reportable, Absolute Neuts (auto) 13.2 H, Absolute Lymphs (auto) 0.81 L, Total Counted 100, Neutrophils % (Manual) 69, Band Neutrophils % 12 H, Lymphocytes % (Manual) 5 L, Metamyelocytes % 8 H, Myelocytes % 5 H, Blast Cells % 1 H*, Diff Path Review May foll, Platelet Estimate ADEQUATE, RBC Morphology NORM C+C Microbiology: Microbiology 06/07/22 00:37 Urine, Clean Catch Urine Culture - Final Culture exhibits no growth. 06/07/22 01:04 Blood Culture (Wb) - Anticubital Right Blood Culture - Preliminary No growth in 48 hours. 06/07/22 00:33 Blood Culture (Wb) - Port Blood Culture - Preliminary No growth in 48 hours. 06/07/22 00:55 Nasal Secretion SARS-CoV-2 & FLU Antigen (Rapid) - Final D/C Instructions Discharge Diet: Light diet - advance as tolerated Call your doctor if you observe: Fever of 101 or Higher, Shortness of breath, Dizziness, Fainting spells, Swelling in the ankles, Chest pain and Increased palpitations (irregular heartbeat) Meaningful Use Info Meaningful Use Diagnoses (Choose all that apply): None applicable Discharge Plan Admission Admit Date/Time: 06/07/22 04:51 Attending Provider: Carlos Alberto Junior Primary Care Provider: Dulce Sood Consulting Providers: Chase Anaya Discharge Orders/Prescriptions Prescriptions: New ciprofloxacin HCl 500 mg tablet 500 mg PO BID 7 Days Qty: 14 0RF metronidazole 500 mg tablet 500 mg PO Q8H 7 Days Qty: 21 0RF Continued furosemide 40 mg Tablet 40 mg PO DAILY carvedilol 25 mg Tablet 25 mg PO BID Rx Instructions: must administer with a meal/food prednisone 5 mg Tablet 5 mg PO BID prochlorperazine maleate 10 mg Tablet 10 mg PO Q6H PRN (Reason: Nausea) allopurinol 100 mg Tablet 100 mg PO DAILY aspirin 81 mg Tablet,Delayed Release (Dr/Ec) 81 mg PO DAILY isosorbide mononitrate 60 mg Tablet Extended Release 24 Hr 60 mg PO DAILY dexamethasone 4 mg Tablet 4 mg PO BID ezetimibe 10 mg Tablet 10 mg PO DAILY rosuvastatin 20 mg Tablet 20 mg PO DAILY abiraterone 500 mg Tablet 1,000 mg PO DAILY Rx Instructions: must be taken on empty stomach, at least 1 hr before or 2 hrs after a meal/food Referrals / Follow Up: Dulce Sood DO [Primary Care Provider] - Within 1 Week Disposition Disposition (needs filled in before D/C Order can be placed): Home, Self Care Charges/Coding Visit Charges Inpatient E&M: 39820 Disch Hosp >30min
[2022-06-12 09:50] LABS: Pathologist Review Reviewed
[2022-06-12 09:50] LABS: Pathologist Review Reviewed
== END 2022-06-09 12:41 | disposition home or self-care (01) | DRG 808 ==
LOC: ED 04:50 → PCU 05:22
PROVIDERS: Admitting Provider Hospitalist; Emergency Provider Emergency Medicine; PCP Family Medicine; Visit Provider Family Medicine
DX: D70.9 Neutropenia, unspecified (principal); E43 Unspecified severe protein-calorie malnutrition; N17.9 Acute kidney failure, unspecified; C79.51 Secondary malignant neoplasm of bone; A09 Infectious gastroenteritis and colitis, unspecified; C61 Malignant neoplasm of prostate; E78.5 Hyperlipidemia, unspecified; N18.2 Chronic kidney disease, stage 2 (mild); I12.9 Hypertensive chronic kidney disease with stage 1 through stage 4 chronic kidney disease, or unspecified chronic kidney disease; R50.81 Fever presenting with conditions classified elsewhere; Z79.52 Long term (current) use of systemic steroids; Z92.21 Personal history of antineoplastic chemotherapy; Z68.39 Body mass index [BMI] 39.0-39.9, adult
CPT/HCPCS: 36415; 36591; 71046; 74177; 80048; 81001; 83605; 85025; 87040; 87086; 87428; 97802; 99285; J2185; J7030; J7040; J7050; Q9967; A4216; J1447

== ENCOUNTER 2022-07-01 15:11 | Inpatient (IN) | payer MEDICARE, OTHER, SELFPAY ==
[2022-07-01] VITALS (10 sets, daily range): BP systolic 98–111; BP diastolic 55–64; PULSE 67–83; RESP 16–26; TEMP 36.6–39.4; O2SAT 90–98; BMI 37.8; BMI 28.7
--- NOTE | 2022-07-01 15:24 | EKG12_ITS ---
Test Reason : FEVER Blood Pressure : / mmHG Vent. Rate : 082 BPM Atrial Rate : 082 BPM P-R Int : 178 ms QRS Dur : 088 ms QT Int : 390 ms P-R-T Axes : 002 -20 -26 degrees QTc Int : 455 ms Normal sinus rhythm Nonspecific ST abnormality Abnormal ECG Confirmed by SHAY MERCER, JED ([id number]), editorial assistant JAMIN VAUGHAN ([id number]) on 07/02/2022 12:15:38 PM Referred By: ERIC Confirmed By:JED DAY MD
--- NOTE | 2022-07-01 15:27 | EX.ED.DYSGE1 ---
HPI History of Present Illness Chief Complaint: Fever Narrative Narrative: 67-year-old male presenting with fever which started earlier today. He states his Tmax was 101.7. Patient states his main symptom today is GI upset and diarrhea. This has resolved now. He has mild nausea. 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 He used to see Dr. Carmona, however he is retiring. Patient now sees Dr. Garcia. Last chemotherapy was 1 week ago. He states that his Zytiga. Patient states he had neutropenic fever after initial dose of previous chemotherapy after cycle of Taxotere. [facility] Medical History CHF (congestive heart failure) Chronic anemia Hyperlipemia Hypertension Hypertension Obesity KIMBERLY on CPAP Prostate cancer metastatic to bone Home Medications allopurinol 100 mg tablet 100 mg PO DAILY gout 06/07/22 [History Last Taken 07/01/22 08:00] aspirin 81 mg tablet,delayed release 81 mg PO DAILY heart health 06/07/22 [History Last Taken 07/01/22 08:00] carvedilol 25 mg tablet 25 mg PO BID blood pressure 06/07/22 [History Last Taken 07/01/22 08:00] ezetimibe 10 mg tablet 10 mg PO DAILY cholesterol 06/07/22 [History Last Taken 07/01/22 08:00] furosemide 40 mg tablet 40 mg PO QODAY water pill 06/07/22 [History Last Taken 07/01/22 08:00] isosorbide mononitrate 60 mg tablet,extended release 24 hr 60 mg PO DAILY blood pressure 06/07/22 [History Last Taken 07/01/22 08:00] prochlorperazine maleate 10 mg tablet 10 mg PO Q6H PRN PRN Nausea 06/07/22 [History Last Taken Unknown] rosuvastatin 20 mg tablet 20 mg PO QHS cholesterol 06/07/22 [History Last Taken 06/30/22 21:00] Allergy/AdvReac Type Severity Reaction Status Date / Time No Known Allergies Allergy Verified 07/01/22 20:34 Family History Father Heart disease Hypertension Other CVA (cerebral vascular accident) Cancer Diabetes Surgical History History of prostatectomy Social History household members: spouse Smoking Status: Never smoker alcohol intake: never substance use type: does not use ROS ROS ED Constitutional Constitutional ED: Reports fever(s) Eyes Eyes: Denies change in vision or diplopia ENT ENT ED: Denies rhinorrhea or sore throat Cardiovascular Cardiovascular: Denies chest pain or palpitations Respiratory/Chest Respiratory/Chest: Denies cough or dyspnea Gastrointestinal Gastrointestinal: Reports abdominal pain, diarrhea and nausea; Denies vomiting Genitourinary Genitourinary ED: Denies dysuria or hematuria Musculoskeletal Musculoskeletal: Denies arthralgias or back pain Integumentary Denies abscess Neurologic Neurologic: Denies headache(s) or paresthesias Psychiatric Psychiatric: Denies anxiety or depression EXAM Physical Exam Const Vital Signs: 07/01/22 15:13 07/01/22 15:58 07/01/22 16:01 Temperature 99.3 F H 102.9 F H Temperature Source Oral Oral Pulse Rate 83 79 Respiratory Rate 18 24 H Respiratory Pattern Normal Blood Pressure 98/58 L 104/64 Blood Pressure Mean 71 77 Pulse Ox 96 90 Oxygen Delivery Method Room Air Room Air Oxygen Flow Rate (L/min) 07/01/22 16:29 07/01/22 16:58 07/01/22 17:58 Temperature 100.8 F H 98.7 F Temperature Source Oral Oral Pulse Rate 76 70 Respiratory Rate 20 H 26 H Respiratory Pattern Blood Pressure 98/62 102/60 Blood Pressure Mean 74 74 Pulse Ox 95 94 94 Oxygen Delivery Method Nasal Cannula Nasal Cannula Nasal Cannula Oxygen Flow Rate (L/min) 2 2 2 Positive well nourished General Appearance ED: NAD; Negative for pallor HEENT Reports moist mucous membranes Negative for trauma Eyes PERRL and EOMs intact bilaterally General Eye ED: Negative for pale conjunctiva or scleral icterus Neck no lymphadenopathy Resp normal respiratory effort and clear to auscultation bilaterally Auscultation: Negative for rales, rhonchi or wheezes Cardio regular rate and regular rhythm GI GI Narrative: Benign abdomen. Palpation: Negative for guarding, splenomegaly, mass or rebound tenderness present Back/Spine no CVA tenderness Psych mental status grossly normal Skin no rashes or lesions noted and no wounds General Skin Exam: Negative for elasticity normal, jaundice or pallor MDM MDM MDM Narrative Medical decision making narrative: Patient presenting with fever. He is currently on chemotherapy with last dose 1 week ago. Patient complains of GI upset including nausea and diarrhea. He looks like from his previous office visit on 06/18/2022 the patient is now out to have Neulasta with each cycle of chemotherapy. He is to receive Zometa monthly and Lupron every 3 months. Patient is afebrile here. He states he is no longer nauseous. He states his diarrhea has resolved. He states he might have a 3/10 of pain in the center of his abdomen and he points to his epigastrium down to his umbilicus. Differential includes but is not limited to Covid-19, InfluenzA, pneumonia, Uti, Colitis, diverticulitis, bacteremia, neutropenic fever, pancreatitis . Patient pancultured. CBC to assess white blood cell count, hemoglobin, differential. CMP to assess liver function, renal function, glucose, anion gap. Lipase to assess for pancreatitis. Coagulation studies, lactic acid as part of septic work-up chest x-ray to assess for pneumonia. Urinalysis assess UTI. I did order stool studies as well since the patient's main complaint is diarrhea. Patient empirically medicated with Zosyn 3.375 g IV x1. He was given 2 L of IV fluids. Patient declines analgesia or antibiotics at this time. White blood cell count mildly elevated 11.6. Hemoglobin hematocrit stable. Platelets normal. Coagulation studies within normal limits. Renal function and electrolytes unremarkable. With exception of a bilirubin of 2 his LFTs are normal. lactic acid normal at 1.5. Patient was given a total of 3 L of normal saline his blood pressure is now improving. She is normotensive. Heart rate and other vital signs are normal. CT of the abdomen pelvis was obtained which shows diverticulitis with worsening sclerotic lesions consistent with previously known mets to the bone. Chest x-ray on my interpretation shows no acute process. Patient has no hypoxia, tachypnea and the radiologist reads this as edema versus infection. Given patient is immunocompromise and febrile with a source of infection he is admitted to medicine. Stable on transfer to floor. Impression: 1. Febrile illness 2. Acute diverticulitis 3. Hypotension resolved Lab Data Labs: Laboratory Results - last 24 hr 07/01/22 07/01/22 07/01/22 15:42 15:42 15:42 WBC 11.6 H RBC 3.88 L Hgb 11.0 L Hct 34.7 L MCV 89.4 MCH 28.4 MCHC 31.7 L RDW Std Deviation 52.9 H RDW Coeff of [place] 16.3 H Plt Count 220 MPV 10.7 Neut % (Auto) Not Reportable Absolute Neuts (auto) 6.0 Absolute Lymphs (auto) 2.31 Total Counted 100 Neutrophils % (Manual) 44 L Band Neutrophils % 8 H Lymphocytes % (Manual) 20 Monocytes % (Manual) 22 H Metamyelocytes % 1 Myelocytes % 1 H Promyelocytes % 4 H Diff Path Review May foll PT 15.3 H INR 1.2 APTT 29.9 Sodium 141 Potassium 3.6 Chloride 108 H Carbon Dioxide 25.0 Anion Gap 8 BUN 14 Creatinine 1.29 Estim Creat Clear Calc 57.09 Est GFR (MDRD) Af Amer 72 Est GFR (MDRD) Non-Af 59 L BUN/Creatinine Ratio 10.9 Glucose 120 H Lactic Acid Calcium 8.6 Phosphorus Magnesium Total Bilirubin 2.00 H AST 19 ALT 17 Alkaline Phosphatase 83 Total Protein 6.6 Albumin 3.3 Globulin 3.3 Albumin/Globulin Ratio 1.0 Lipase 181 Urine Color Urine Clarity Urine pH Ur Specific [place] Urine Protein Urine Glucose (UA) Urine Ketones Urine Occult Blood Urine Nitrite Urine Bilirubin Urine Urobilinogen Ur Leukocyte Esterase Urine RBC Urine WBC Ur Squamous Epith Cells Urine Bacteria Urine Mucus 07/01/22 07/01/22 07/01/22 15:42 15:42 16:14 WBC RBC Hgb Hct MCV MCH MCHC RDW Std Deviation RDW Coeff of [place] Plt Count MPV Neut % (Auto) Absolute Neuts (auto) Absolute Lymphs (auto) Total Counted Neutrophils % (Manual) Band Neutrophils % Lymphocytes % (Manual) Monocytes % (Manual) Metamyelocytes % Myelocytes % Promyelocytes % Diff Path Review PT INR APTT Sodium Potassium Chloride Carbon Dioxide Anion Gap BUN Creatinine Estim Creat Clear Calc Est GFR (MDRD) Af Amer Est GFR (MDRD) Non-Af BUN/Creatinine Ratio Glucose Lactic Acid 1.5 Calcium Phosphorus 2.2 L Magnesium 2.0 Total Bilirubin AST ALT Alkaline Phosphatase Total Protein Albumin Globulin Albumin/Globulin Ratio Lipase Urine Color Yellow Urine Clarity Clear Urine pH 5.0 Ur Specific [place] 1.020 Urine Protein 15 H Urine Glucose (UA) Normal Urine Ketones Negative Urine Occult Blood 25 H Urine Nitrite Negative Urine Bilirubin Negative Urine Urobilinogen Normal Ur Leukocyte Esterase Negative Urine RBC 0 SEEN Urine WBC 0-5 SEEN Ur Squamous Epith Cells 0 SEEN Urine Bacteria 0 SEEN Urine Mucus 0 SEEN Radiography Diagnostic Testing: Clinical Impression(s) from Imaging Studies Chest X-Ray 07/01/22 16:22 IMPRESSION: Slight increase in interstitial markings may represent edema and/or infection. Electronically Signed: Dustin Hatch MD at 17:20 EST , Abdomen/Pelvis CT 07/01/22 16:29 IMPRESSION: Acute sigmoid diverticulitis. No focal fluid collection or free air. Findings suspicious for worsening of sclerotic osseous metastases when compared to prior on 06/07/2022. Moderate splenomegaly. Status post prostatectomy with postsurgical changes. Electronically Signed: Dustin Hatch MD at 19:13 EST , ADDENDUM: 07/01/22 1939 IMPRESSION: Acute sigmoid diverticulitis. No focal fluid collection or free air. Findings suspicious for worsening of sclerotic osseous metastases when compared to prior on 06/07/2022. Moderate splenomegaly. Status post prostatectomy with postsurgical changes. N.B. : Sari Arzate RN, confirmed on 07/01/2022 19:32:46 (ET) that the healthcare facility has received the radiology report. Electronically Signed: Dustin Hatch MD at 19:13 EST , Discharge Plan Disposition Disposition: Acute Care Hospital [facility] Discharge Date/Time: 07/01/22 19:10
[2022-07-01] MEDS: 0.9% Normal Saline 1,000 ML 999 ML IV ×4 (15:53→20:03)
[2022-07-01 16:04] LABS: Hematocrit 34.7 % (40-54); Mean Corp Hgb Conc 31.7 g/dL (32-36); Mean Corpuscular Hgb 28.4 pg (27.0-32.0); Mean Corpuscular Volume 89.4 fL (80-94); Mean Platelet Vol. 10.7 fl (6.2-12.0); POSITIVE COUNT YES; POSITIVE MORPHOLOGY YES; Platelet Count 220 K/mm3 (150-450); RBC Distribution Width CV 16.3 % (11.6-14.6); RBC Distribution Width SD 52.9 fl (35.1-43.9); Red Blood Count 3.88 M/mm3 (4.6-6.2); White Blood Count 11.6 K/mm3 (4.4-11.0)
[2022-07-01 16:13] LABS: International Normalized Ratio 1.2; Prothrombin Time (Protime)PT. 15.3 SECONDS (11.7-14.9)
[2022-07-01 16:14] LABS: Partial Thromboplast Time 29.9 Seconds (24.1-36.2)
[2022-07-01] MEDS: Acetaminophen 500 MG Tablet 1000 MG PO (16:18)
[2022-07-01 16:19] LABS: Bacteria 0 SEEN /hpf (None Seen); Mucous, Urine 0 SEEN /hpf (<or=2+); Red Blood Cells-Urine 0 SEEN /hpf (0-5); Squamous Epithelial Cells - UA 0 SEEN /hpf (0-5)
[2022-07-01 16:22] LABS: Color, Urine Yellow (Yellow); Glucose, Dipstick Normal (Normal); Ketone-Dipstick Negative (Negative); Leukocyte Esterase-Dipstick Negative /ul (Negative); Nitrite-Dipstick Negative (Negative); Occult Blood-Urine 25 /ul (Negative); Protein-Dipstick 15 mg/dl (Negative); Urine Bilirubin Dipstick Negative (Negative); Urine Clarity Clear (Clear); Urine Urobilinogen Normal (Normal)
--- NOTE | 2022-07-01 16:22 | RAD_ITS ---
INDICATION: fever EXAMINATION/TECHNIQUE: X-RAY - XR Chest 2 Views COMPARISON: 06/07/2022. FINDINGS: Slight increase in interstitial markings. Tortuous and calcified thoracic aorta. The heart is mildly enlarged. Right-sided chest port. No pleural effusion or pneumothorax. Degenerative changes of the thoracic spine. RAD/Chest PA and Lateral IMPRESSION: Slight increase in interstitial markings may represent edema and/or infection. Electronically Signed: Dustin Hatch MD at 17:20 EST ,
[2022-07-01 16:24] LABS: AST(SGOT) 19 U/L (15-37); Alanine Aminotransfer ALT/SGPT 17 U/L (16-61); Albumin, Serum 3.3 g/dL (3.2-5.0); Alkaline Phosphatase 83 U/L (45-117); Anion Gap 8 (5-15); BUN 14 mg/dL (7-18); BUN/Creat Ratio 10.9 RATIO (10-20); Calcium,Total 8.6 mg/dL (8.5-10.1); Chloride 108 mmol/L (98-107); Creatinine, Serum 1.29 mg/dL (0.70-1.30); EST Glomerular Filtration Rate 59 mL/min (>60); Est Glom Filt Rate - Afr Amer 72 mL/min (>60); Estimated Creatinine Clearance 57.09 ml/min; Globulin 3.3 g/dL (2.2-4.2); Glucose 120 mg/dL (74-106); Lipase 181 U/L (73-393); Potassium 3.6 mmol/L (3.5-5.1); Protein, Total 6.6 g/dL (6.4-8.2); Sodium Level 141 mmol/L (136-145)
[2022-07-01 16:26] LABS: Lactic Acid 1.5 mmol/L (0.4-1.9)
--- NOTE | 2022-07-01 16:29 | CT_ITS ---
ACR Level 3 findings have been noted. An addendum which confirms receipt of the report will follow. INDICATION: abdominal pain. PROSTATE CANCER WITH METS TO BONE CHEMO ONE WEEK AGO PROSTATE REMOVED EXAMINATION: CT Abdomen And Pelvis W/ Contrast Injection TECHNIQUE: Helically acquired images were obtained of the abdomen and pelvis after IV contrast. A radiation dose optimization technique was used for this scan. IV Contrast dosage and agent: IV 100mL [id number] Oral contrast: None. COMPARISON: 06/07/2022.. FINDINGS: Visualized lung bases: Unremarkable Liver: Unremarkable Gallbladder: Unremarkable Spleen: The spleen is enlarged measuring 17 cm in craniocaudal dimension. Pancreas: Unremarkable Adrenal Glands: Unremarkable Kidneys: Bilateral simple renal cysts. Vasculature: Mild scattered aortoiliac atherosclerotic calcifications. GI Tract: The appendix is normal. There are colonic diverticula. There is short segment circumferential wall thickening and increased enhancement of the sigmoid colon. Lymphadenopathy: None Peritoneum: No ascites. Bladder: Unremarkable Reproductive organs: Unremarkable Bones/Soft tissues: There are diffuse degenerative changes of the spine. Slight increase in size of a few scattered sclerotic lesions throughout the appendicular and axial skeleton. For example, there is a 1.6 cm sclerotic focus in the T11 vertebral body, previously measuring 1.4 cm on 06/07/2022 CT/Abdomen/Pelvis W IV Cont ONLY IMPRESSION: Acute sigmoid diverticulitis. No focal fluid collection or free air. Findings suspicious for worsening of sclerotic osseous metastases when compared to prior on 06/07/2022. Moderate splenomegaly. Status post prostatectomy with postsurgical changes. Electronically Signed: Dustin Hatch MD at 19:13 EST ,
[2022-07-01 16:31] LABS: White Blood Cells 0-5 SEEN /hpf (0-5)
[2022-07-01 16:36] LABS: Differential Indicated MANUAL DIFF
[2022-07-01 16:44] LABS: Lymphocyte 20 % (19-41); Metamyelocyte 1 % (0-1); Monocyte 22 % (0-10); Myelocyte 1 % (0-0); Neutrophil-Band 8 % (0-5); Neutrophil-Segmented 44 % (47-70); Promyelocyte 4 % (0-0); Total Cells Counted 100 (MANUAL DIFF)
[2022-07-01 16:55] LABS: Absolute Lymphocyte Count 2.31 X10^3/uL (0.83-4.51)
[2022-07-01 19:05] LABS: Phosphorus 2.2 mg/dL (2.5-4.9)
--- NOTE | 2022-07-01 19:13 | HP.PCM.HOS_ITS ---
HPI - General General Date of Admission: 07/01/22 Date of Service: 07/01/22 Chief Complaint: Nausea, diarrhea, cough, recent chemotherapy with fever. HPI Narrative The patient is a 67 y/o M w/ PMHx: Chronic normocytic anemia, Gout, HTN, HLD, Chronic CHF, KIMBERLY, Obesity, Prostate CA s/p prostatectomy/lupron treatment with metastatic disease to the bone w/ initiation chemotherapy starting 05/30/22 following with [facility]. Carmona w/ most recent noted chemotherapy on 06/25/22 who presents to the [facility] ED on 07/01/22 with history of onset fever earlier in the day with a Tmax 101.7 at home with dyspepsia and loose stools which have now improved however he does still have mild nausea but no emesis with active ongoing chemotherapy for his metastatic prostate cancer with metastatic disease to his bone and lymph nodes per review of clinic sink records with last noted chemotherapy 06/25/2022 prompting eventual ED evaluation. He does report recent mild cough but nonproductive for the last 2 to 3 days. He denies any significant dyspnea associated with this nor any recent upper respiratory type symptoms work-up in the ED included T102.9, heart rate 79, BP 104/64, respiratory rate 24, 90% on room air--> 95% on 2 L nasal cannula, blood culture x2 pending per ED, urine culture pending per ED, coags with PT 15.3 otherwise INR 1.2, PTT 29.9, CBC with WC 11.6, hemoglobin 11, platelet 220 CMP with chloride 108, glucose 120, lactic acid 1.5, hepatic profile with T. bili 2.0 however AST/ALT 19/17, alk phos 83 and hepatic profile otherwise unremarkable, lipase 181, urinalysis with elevated specific gravity 1.020, urine protein 15, negative ketone, occult blood 25, negative nitrate, negative leukocyte Estrace with no acute evidence of urinary tract infection, rapid COVID/influenza antigen negative, enteric pathogen panel stool/O&P/stool lactoferrin/WBC/C. difficile requested per ED physician, chest x-ray with slight increase in interstitial markings possibly edema and/or infection, CT abdomen pelvis with IV contrast pending read upon requested evaluation. In the ED patient administered 2 L normal saline, Tylenol 1000 mg p.o. x1 as well as IV Zosyn. [facility] Medical History (Updated 07/01/22 @ 19:[address] Felicita Grullon MD) CHF (congestive heart failure) Chronic anemia Hyperlipemia Hypertension Hypertension Obesity KIMBERLY on CPAP Prostate cancer metastatic to bone Home Medications abiraterone 500 mg tablet 1,000 mg PO DAILY 06/07/22 [History Last Taken Unknown] allopurinol 100 mg tablet 100 mg PO DAILY 06/07/22 [History Last Taken Unknown] aspirin 81 mg tablet,delayed release 81 mg PO DAILY 06/07/22 [History Last Taken Unknown] carvedilol 25 mg tablet 25 mg PO BID 06/07/22 [History Last Taken Unknown] ezetimibe 10 mg tablet 10 mg PO DAILY 06/07/22 [History Last Taken Unknown] furosemide 40 mg tablet 40 mg PO DAILY 06/07/22 [History Last Taken Unknown] isosorbide mononitrate 60 mg tablet,extended release 24 hr 60 mg PO DAILY 06/07/22 [History Last Taken Unknown] prochlorperazine maleate 10 mg tablet 10 mg PO Q6H PRN Nausea 06/07/22 [History Last Taken Unknown] rosuvastatin 20 mg tablet 20 mg PO DAILY 06/07/22 [History Last Taken Unknown] Allergy/AdvReac Type Severity Reaction Status Date / Time No Known Allergies Allergy Verified 07/01/22 15:14 Family History (Updated 07/01/22 @ 16:[address] Felicita Grullon MD) Father Heart disease Hypertension Other CVA (cerebral vascular accident) Cancer Diabetes Surgical History History of prostatectomy Social History (Updated 07/01/22 @ 16:[address] Felicita Grullon MD) household members: spouse Smoking Status: Never smoker alcohol intake: never substance use type: does not use ROS ROS Narrative Admission Review of Systems: CONSTITUTIONAL: No weight loss, + fever, chills, weakness or fatigue. HEENT: Eyes: No visual loss, blurred vision, double vision or yellow sclerae. Ears, Nose, Throat: No hearing loss, sneezing, congestion, runny nose or sore throat. SKIN: No rash or itching, lesions, wounds. CARDIOVASCULAR: No chest pain, chest pressure or chest discomfort, palpitations, edema, orthopnea, syncopal events. RESPIRATORY: + Mild cough. No shortness of breath, increased sputum, wheezing, hemoptysis. GASTROINTESTINAL: + anorexia, nausea, diarrhea, No marked emesis, abdominal pain, melena, BRBPR. GENITOURINARY: No dysuria, frequency, urgency or retention. NEUROLOGICAL: No headache, dizziness, syncope, paralysis, ataxia, numbness or tingling in the extremities, focal weakness, change in bowel or bladder control, seizure. MUSCULOSKELETAL: + muscle, back pain, joint pain or stiffness. HEMATOLOGIC: + anemia, bleeding or bruising. LYMPHATICS: No enlarged nodes. No history of splenectomy. PSYCHIATRIC: No history of depression or anxiety. ENDOCRINOLOGIC: No reports of sweating, cold or heat intolerance. No polyuria or polydipsia. ALLERGIES: No history of asthma, hives, eczema or rhinitis. Vital Signs Vital Signs Vital Signs: 07/01/22 15:13 07/01/22 15:58 07/01/22 16:01 Temperature 99.3 F H 102.9 F H Temperature Source Oral Oral Pulse Rate 83 79 Respiratory Rate 18 24 H Respiratory Pattern Normal Blood Pressure 98/58 L 104/64 Blood Pressure Mean 71 77 Pulse Ox 96 90 Oxygen Delivery Method Room Air Room Air Oxygen Flow Rate (L/min) 07/01/22 16:29 07/01/22 16:58 07/01/22 17:58 Temperature 100.8 F H 98.7 F Temperature Source Oral Oral Pulse Rate 76 70 Respiratory Rate 20 H 26 H Respiratory Pattern Blood Pressure 98/62 102/60 Blood Pressure Mean 74 74 Pulse Ox 95 94 94 Oxygen Delivery Method Nasal Cannula Nasal Cannula Nasal Cannula Oxygen Flow Rate (L/min) 2 2 2 Weight Weight: 256 lb Body Mass Index (BMI) 37.8 Physical Exam Narrative Physical Examination: General: Awake, alert, oriented x 3 and cooperative, fatigued, laying in the ED bed, no acute distress. Skin: Flushed color, normal turgor, no icterus, no cyanosis. HEENT: AT/NC, EOMI, PERRLA, mildly dry MM, no carotid bruits or JVD noted. Lungs: Diminished, greater bases, mildly increased respiratory rate and mild hypoxia upon ED presentation otherwise no rales, ronchi or wheezing. Heart: Currently regular rate and rhythm; no gallop, rub audible. Abdomen: Soft, obese NTTP, ND, distant BS, no HSM. Extremities: No cyanosis, clubbing, or edema. Neurological: Patient awake, alert, oriented as noted cognitive function intact; pupils equally reactive to light and accommodation, cranial nerves II- XII grossly normal, moving all 4 extremities, no focal deficits, strength moderately global decrease secondary to acute presentation. Psychiatric: Affect appears flat, fatigue, no acute evidence of depressive or anxiety feelings. Results Lab / Micro Data Result Diagrams: 07/01/22 15:42 07/01/22 15:42 Labs: Laboratory Results - last 24 hr 07/01/22 15:42: WBC 11.6 H, RBC 3.88 L, Hgb 11.0 L, Hct 34.7 L, MCV 89.4, MCH 28.4, MCHC 31.7 L, RDW Std Deviation 52.9 H, RDW Coeff of [place] 16.3 H, Plt Count 220, MPV 10.7, Neut % (Auto) Not Reportable, Absolute Neuts (auto) 6.0, Absolute Lymphs (auto) 2.31, Total Counted 100, Neutrophils % (Manual) 44 L, Band Neutrophils % 8 H, Lymphocytes % (Manual) 20, Monocytes % (Manual) 22 H, Metamyelocytes % 1, Myelocytes % 1 H, Promyelocytes % 4 H, Diff Path Review September07/01/22 15:42: PT 15.3 H, INR 1.2, APTT 29.9 07/01/22 15:42: Sodium 141, Potassium 3.6, Chloride 108 H, Carbon Dioxide 25.0, Anion Gap 8, BUN 14, Creatinine 1.29, Estim Creat Clear Calc 57.09, Est GFR (MDRD) Af Amer 72, Est GFR (MDRD) Non-Af 59 L, BUN/Creatinine Ratio 10.9, Glucose 120 H, Calcium 8.6, Total Bilirubin 2.00 H, AST 19, ALT 17, Alkaline Phosphatase 83, Total Protein 6.6, Albumin 3.3, Globulin 3.3, Albumin/Globulin Ratio 1.0, Lipase 181 07/01/22 15:42: Lactic Acid 1.5 07/01/22 16:14: Urine Color Yellow, Urine Clarity Clear, Urine pH 5.0, Ur Specific [place] 1.020, Urine Protein 15 H, Urine Glucose (UA) Normal, Urine Ketones Negative, Urine Occult Blood 25 H, Urine Nitrite Negative, Urine Bilirubin Negative, Urine Urobilinogen Normal, Ur Leukocyte Esterase Negative, Urine RBC 0 SEEN, Urine WBC 0-5 SEEN, Ur Squamous Epith Cells 0 SEEN, Urine Bacteria 0 SEEN, Urine Mucus 0 SEEN Micro: Microbiology 07/01/22 15:34 Nasal Secretion SARS-CoV-2 & FLU Antigen (Rapid) - Final Radiology Impression Chest X-Ray 07/01/22 16:22 IMPRESSION: Slight increase in interstitial markings may represent edema and/or infection. Electronically Signed: Dustin Hatch MD at 17:20 EST , Assessment & Plan Assessment/Plan (1) Pneumonia: PLAN: Plan The patient is a 67 y/o M w/ PMHx: Chronic normocytic anemia, Gout, HTN, HLD, Chronic CHF, KIMBERLY, Obesity, Prostate CA s/p prostatectomy/lupron treatment with metastatic disease to the bone w/ initiation chemotherapy starting 05/30/22 following with [facility]. Carmona w/ most recent noted chemotherapy on 06/25/22 who presents to the [facility] ED on 07/01/22 with history of onset fever earlier in the day with a Tmax 101.7 at home with dyspepsia and loose stools which have now improved however he does still have mild nausea but no emesis with active ongoing chemotherapy for his metastatic prostate cancer with metastatic disease to his bone and lymph nodes per review of clinic sink records with last noted chemotherapy 06/25/2022 prompting eventual ED evaluation. #1. Acute Hypotension and Hypoxia secondary to Acute BL Pneumonia and likely hypotension also with recent GI losses with recent nausea, loose stools (possibly PNA related or secondary to recent chemotherapy): Will admit to medical surgical floor, of note CT abdomen pelvis read is pending upon requested evaluation of patient thus if any acute findings result may certainly alter care pathway at that time, currently chest x-ray with questionable infiltrates and patient does have mild hypoxia with recent cough, therefore will opt to initiate antibiotic therapy for possible underlying pneumonia with planned repeat chest x-ray in a.m. given recent hydration, will maintain on Neutropenic precautions, obtain mag and phos level given recent chemotherapy treatments, will obtain sputum Cx, respiratory viral panel, urine antigens, stool studies already requested per ED, obtain procalcitonin, maintain I&Os, treat with IV vanc and zosyn w/ MRSA screen requested until able to de-escalate, blood culture x2, u rine culture although UA not marked appearing, trend CBC, BMP with hepatic profile also given mildly elevated T. bili. PRN tylenol, anti-emetics, pain regimen. #2. Hyperbilirubinemia: Admission T. bili 2.0, AST/ALT, alk phos otherwise unremarkable, will request hepatic profile for breakdown of direct and indirect, plan repeat level in a.m., if remains elevated will obtain liver ultrasound to further investigate. #3. Hyperglycemia, mild: Admission glucose 120, likely stress response, hemoglobin A1c requested be cautious. #4. Prostate CA: Patient s/p remote prostatectomy several years prior/lupron treatment with metastatic disease to the bone w/ initiation chemotherapy starting 05/30/22 with rising PSA prior to this, will continue his abiraterone and low dose steroids, following with Dr. Perez however per patient report he is retiring and therefore he is transitioning to Dr. Garcia. #5. Chronic anemia, normocytic: Admission hemoglobin 11, baseline prior noted 10-12, associated with underlying prostate cancer with metastatic disease and chemotherapy treatments, will continue to trend. #6. Chronic CHF, Unclear type: No ECHO reported in [facility] and no recent ECHO noted for the last several years upon review of patient records in the [facility] system. Patient does report he is supposed to have an upcoming echocardiogram and not really sure if he truly does have underlying CHF history. Currently has tolerated 2 L normal saline administration in the ED without any marked dyspnea complaints. Will continue aspirin, statin, given low normal BP upon presentation we will temporarily hold Coreg and diuretic therapy, add back once appropriate, not on LINDA inhibitor/ARB of note. Given presentation judiciously hydrating given unclear CHF history. #7. Hypertension: Given the low normal BP upon presentation with acute presentation #1 we will temporarily hold Coreg/isosorbide/Lasix, resume once appropriate, PRN hydralazine. #8. Hyperlipidemia: We will continue patient on statin and Zetia regimen. #9. Gout: We will continue patient home allopurinol regimen. #10. Obesity: Weight loss and lifestyle changes encouraged. #11. KIMBERLY: CPAP nightly. #12. DVT prophylaxis: SCDs, Lovenox. #13. CODE status: Patient HCPOA is his who is present and living will is currently in place. Discussed CODE status at length including difference between FULL code, DNR-CCA and DNR-CC status. Following discussions about the differences in these status, requested Full Code status. Advanced Care Planning Face to Face Time: 16 minutes. Admission Evaluation Time spent evaluating chart, patient history, patient evaluation, care planning and discussion with specialists: 76 minutes. Charges/Coding Visit Charges Inpatient E&M: 65735 Init Hosp L3 Procedures Hospitalists Procedures: 01678 Advncd Care Plan 30 Min
[2022-07-01 19:32] LABS: Procalcitonin 0.23 ng/mL (0.00-0.09)
[2022-07-01] MEDS: 0.9% Normal Saline 1,000 ML 100 ML IV (22:01)
[2022-07-01] MEDS: Atorvastatin Calcium 40 MG Tablet PO (22:42)
--- NOTE | 2022-07-02 00:25 | PCM.RX.CS ---
Consult Pharmacy has been consulted to manage selected antiobiotic: Vancomycin Type of Consult: New start Suspected Infection: Pneumonia Labs: Sodium 141 mmol/L (136-145) 07/01/22 15:42 Potassium 3.6 mmol/L (3.5-5.1) 07/01/22 15:42 Chloride 108 mmol/L (98-107) H 07/01/22 15:42 Carbon Dioxide 25.0 mmol/L (21.0-32.0) 07/01/22 15:42 Anion Gap 8 (5-15) 07/01/22 15:42 BUN 14 mg/dL (7-18) 07/01/22 15:42 Creatinine 1.29 mg/dL (0.70-1.30) 07/01/22 15:42 Est GFR (MDRD) Af Amer 72 mL/min (>60) 07/01/22 15:42 Est GFR (MDRD) Non-Af 59 mL/min (>60) L 07/01/22 15:42 BUN/Creatinine Ratio 10.9 RATIO (10-20) 07/01/22 15:42 Glucose 120 mg/dL (74-106) H 07/01/22 15:42 Microbiology: Microbiology 07/01/22 16:14 Interface Orders Streptococcus pneumoniae Antigen (M - Final 07/01/22 16:14 Interface Orders Legionella Antigen - Final 07/01/22 15:34 Nasal Secretion SARS-CoV-2 & FLU Antigen (Rapid) - Final Weight used for dosin.2 kg Estimated Creatinine Clearance: 62.7 Goal Trough: 15-20 mcg/mL Pharmacy Plan for Drug Dosing: Pharmacy Service will continue to monitor and adjust dosing as required. Medications Vancomycin HCl (Vancomycin) 1,000 mg in 200 mls @ 200 mls/hr IV Q12H ANGELICA Discontinued Medications Vancomycin HCl 2,000 mg/ (Sodium Chloride) 540 mls @ 250 mls/hr IV X1 ONE Stop: 07/01/22 22:39 Last Admin: 07/01/22 22:42 Dose: 250 mls/hr Follow-Up Labs: Trough Vancomycin Labs to be done on [date and time ordered]: 07/03 @ 1030
[2022-07-02] MEDS: CLARIFY ORDER 1 EACH NOTE (01:26)
[2022-07-02 04:28] VITALS: BP 134/69; PULSE 69; RESP 16; TEMP 36.8; O2SAT 99
--- NOTE | 2022-07-02 05:55 | RAD_ITS ---
STUDY: X-RAY CHEST REASON FOR EXAM: Male, 67 years old. Hypoxia TECHNIQUE: Single AP portable view of the chest. COMPARISON: Comparison is made with prior study of 07/01/2022. FINDINGS: A right-sided portacatheter is seen with the tip in the proximal portion of the superior vena cava. Stable elevation of the right hemidiaphragm. Mild increased markings at the left lung base although they have improved as compared to prior study. There is no demonstrated pleural abnormality. There is mild cardiac enlargement. Normal mediastinum and gilmar. Normal visualized pulmonary arteries. There is atherosclerotic calcification of the aortic arch with tortuosity. There are diffuse degenerative changes of the visualized thoracic spine. Normal visualized ribs, clavicles, and shoulders. There is no demonstrated abnormality of the visualized soft tissue structures of the upper abdomen. RAD/Chest 1 View (Portable) IMPRESSION: Mild residual increased markings at the left lung base although there has been improved aeration as compared to prior study. Electronically Signed: Gideon Ibarra MD at 8:16 EST ,
[2022-07-02 06:29] LABS: Hematocrit 37.7 % (40-54); Hemoglobin 11.7 g/dL (13.0-16.5); Mean Corpuscular Hgb 28.1 pg (27.0-32.0); Mean Corpuscular Volume 90.4 fL (80-94); Mean Platelet Vol. 10.4 fl (6.2-12.0); POSITIVE COUNT YES; POSITIVE DIFFERENTIAL YES; POSITIVE MORPHOLOGY YES; Platelet Count 239 K/mm3 (150-450); RBC Distribution Width CV 16.4 % (11.6-14.6); RBC Distribution Width SD 54.4 fl (35.1-43.9); Red Blood Count 4.17 M/mm3 (4.6-6.2)
[2022-07-02 06:59] LABS: Differential Indicated MANUAL DIFF
[2022-07-02 07:02] LABS: Anisocytosis 1+
[2022-07-02 07:05] LABS: Absolute Neutrophil Count 11.9 X10^3/uL (2.0-7.7); Metamyelocyte 5 % (0-1); Neutrophil-Band 6 % (0-5); Neutrophil-Segmented 60 % (47-70); Total Cells Counted 101 (MANUAL DIFF)
[2022-07-02 07:06] LABS: Lymphocyte 5 % (19-41); Monocyte 10 % (0-10); Myelocyte 14 % (0-0); Nucleated Red Bld Cells,Manual 1 % (0-5); Platelet Estimate ADEQUATE (ADEQ); Red Cell Morphology NORM C+C NORMAL (NORM C&C)
[2022-07-02 07:09] LABS: AST(SGOT) 20 U/L (15-37); Alanine Aminotransfer ALT/SGPT 16 U/L (16-61); Albumin, Serum 3.2 g/dL (3.2-5.0); Alkaline Phosphatase 96 U/L (45-117); Anion Gap 5 (5-15); BUN 9 mg/dL (7-18); BUN/Creat Ratio 7.2 RATIO (10-20); Bilirubin, Direct 0.35 mg/dL (0.00-0.30); Chloride 111 mmol/L (98-107); Creatinine, Serum 1.25 mg/dL (0.70-1.30); EST Glomerular Filtration Rate 62 mL/min (>60); Est Glom Filt Rate - Afr Amer 75 mL/min (>60); Estimated Creatinine Clearance 58.92 ml/min; Globulin 3.3 g/dL (2.2-4.2); Glucose 108 mg/dL (74-106); Potassium 3.5 mmol/L (3.5-5.1); Protein, Total 6.5 g/dL (6.4-8.2); Sodium Level 141 mmol/L (136-145)
--- NOTE | 2022-07-02 07:38 | PCM.PN.HOSP ---
Reason for Visit Reason for Visit: Diagnoses Pneumonia, unspecified organism (07/01/22) Subjective Subjective Follow-up for neutropenic fever Objective Data Objective Data Vital Signs: Vital Signs Temp Pulse Resp BP Pulse Ox O2 Del Method O2 Flow Rate 98.2 F 69 16 134/69 H 99 Nasal Cannula 2 07/02/22 04:28 07/02/22 04:28 07/02/22 04:28 07/02/22 04:28 07/02/22 04:28 07/02/22 04:28 07/02/22 04:28 Oxygen Flow Rate (L/min) 2 Oxygen Delivery Method Nasal Cannula Weight: 203 lb 11.314 oz Body Mass Index (BMI) 28.7 Intake & Output: Intake and Output for Last 24 Hours 06/30/22 07/01/22 07/02/22 23:59 23:59 23:59 Intake Total 4160 / 4160 590 / 590 Balance 4160 / 4160 590 / 590 Lab / Micro Data Result Diagrams: 07/02/22 06:11 07/02/22 06:11 Labs: Laboratory Results - last 24 hr 07/01/22 15:42: WBC 11.6 H, RBC 3.88 L, Hgb 11.0 L, Hct 34.7 L, MCV 89.4, MCH 28.4, MCHC 31.7 L, RDW Std Deviation 52.9 H, RDW Coeff of Tyelr 16.3 H, Plt Count 220, MPV 10.7, Neut % (Auto) Not Reportable, Absolute Neuts (auto) 6.0, Absolute Lymphs (auto) 2.31, Total Counted 100, Neutrophils % (Manual) 44 L, Band Neutrophils % 8 H, Lymphocytes % (Manual) 20, Monocytes % (Manual) 22 H, Metamyelocytes % 1, Myelocytes % 1 H, Promyelocytes % 4 H, Diff Path Review September07/01/22 15:42: PT 15.3 H, INR 1.2, APTT 29.9 07/01/22 15:42: Sodium 141, Potassium 3.6, Chloride 108 H, Carbon Dioxide 25.0, Anion Gap 8, BUN 14, Creatinine 1.29, Estim Creat Clear Calc 57.09, Est GFR (MDRD) Af Amer 72, Est GFR (MDRD) Non-Af 59 L, BUN/Creatinine Ratio 10.9, Glucose 120 H, Calcium 8.6, Total Bilirubin 2.00 H, AST 19, ALT 17, Alkaline Phosphatase 83, Total Protein 6.6, Albumin 3.3, Globulin 3.3, Albumin/Globulin Ratio 1.0, Lipase 181 07/01/22 15:42: Lactic Acid 1.5 07/01/22 15:42: Phosphorus 2.2 L, Magnesium 2.0 07/01/22 16:14: Urine Color Yellow, Urine Clarity Clear, Urine pH 5.0, Ur Specific Spencer 1.020, Urine Protein 15 H, Urine Glucose (UA) Normal, Urine Ketones Negative, Urine Occult Blood 25 H, Urine Nitrite Negative, Urine Bilirubin Negative, Urine Urobilinogen Normal, Ur Leukocyte Esterase Negative, Urine RBC 0 SEEN, Urine WBC 0-5 SEEN, Ur Squamous Epith Cells 0 SEEN, Urine Bacteria 0 SEEN, Urine Mucus 0 SEEN 07/01/22 19:00: Procalcitonin 0.23 H 07/02/22 06:11: Sodium 141, Potassium 3.5, Chloride 111 H, Carbon Dioxide 25.0, Anion Gap 5, BUN 9, Creatinine 1.25, Estim Creat Clear Calc 58.92, Est GFR (MDRD) Af Amer 75, Est GFR (MDRD) Non-Af 62, BUN/Creatinine Ratio 7.2 L, Glucose 108 H, Calcium 8.0 L, Total Bilirubin 1.60 H, Direct Bilirubin 0.35 H, AST 20, ALT 16, Alkaline Phosphatase 96, Total Protein 6.5, Albumin 3.2, Globulin 3.3 07/02/22 06:11: WBC 18.0 H, RBC 4.17 L, Hgb 11.7 L, Hct 37.7 L, MCV 90.4, MCH 28.1, MCHC 31.0 L, RDW Std Deviation 54.4 H, RDW Coeff of Tyler 16.4 H, Plt Count 239, MPV 10.4, Neut % (Auto) Not Reportable, Absolute Neuts (auto) 11.9 H, Absolute Lymphs (auto) 0.90, Total Counted 101, Neutrophils % (Manual) 60, Band Neutrophils % 6 H, Lymphocytes % (Manual) 5 L, Monocytes % (Manual) 10, Metamyelocytes % 5 H, Myelocytes % 14 H, Nucleated RBCs/100 WBC 1, Diff Path Review May foll, Platelet Estimate ADEQUATE, RBC Morphology NORM C+C, Anisocytosis 1+ Micro: Microbiology 07/02/22 06:12 Stool Stool Lactoferrin - Final 07/01/22 20:52 Interface Orders Respiratory Panel (PCR) - Final 07/01/22 16:14 Interface Orders Streptococcus pneumoniae Antigen (M - Final 07/01/22 16:14 Interface Orders Legionella Antigen - Final 07/01/22 15:34 Nasal Secretion SARS-CoV-2 & FLU Antigen (Rapid) - Final Radiography Diagnostic Testing: Radiology Impression Chest X-Ray 07/01/22 16:22 IMPRESSION: Slight increase in interstitial markings may represent edema and/or infection. Electronically Signed: Dustin Hatch MD at 17:20 EST Reading Location ID and State: [facility] / [place] Tel , Service support , Abdomen/Pelvis CT 07/01/22 16:29 IMPRESSION: Acute sigmoid diverticulitis. No focal fluid collection or free air. Findings suspicious for worsening of sclerotic osseous metastases when compared to prior on 06/07/2022. Moderate splenomegaly. Status post prostatectomy with postsurgical changes. Electronically Signed: Dustin Hatch MD at 19:13 EST , ADDENDUM: 07/01/22 1939 IMPRESSION: Acute sigmoid diverticulitis. No focal fluid collection or free air. Findings suspicious for worsening of sclerotic osseous metastases when compared to prior on 06/07/2022. Moderate splenomegaly. Status post prostatectomy with postsurgical changes. N.B. : Sari Arzate RN, confirmed on 07/01/2022 19:32:46 (ET) that the healthcare facility has received the radiology report. Electronically Signed: Dustin Hatch MD at 19:13 EST , Physical Exam Narrative Seen and examined. Patient had fever, mild cough. Denies abdominal pain. Physical exam General: Alert, Oriented x3, Cooperative HEENT: Atraumatic, PERRLA, EOMI, Normocephalic Oral: Oral mucosa moist. No Gingival or Mucosal Lesions/ Ulcerations Neck: Supple, No JVD, Negative Carotid Bruits Lungs: Air entry diminished in bilateral lung bases. No crepitation/rhonchi Cardiovascular: Regular rate, Regular Rhythm, Normal S1, Normal S2, No murmurs Abdomen: Bowel Sounds Present, Soft, Non Tender, Non-Distended. No palpable mass. : No renal angle tenderness. No suprapubic tenderness. Extremities: No edema, Capillary Refill Less than 3 Seconds Skin: No rashes, No breakdown Musculoskeletal: No Tenderness to Palpation of Joints or Extremities Neurological: Cranial nerves II-XII grossly intact, DTR 2+/4 and Symmetrical, Neuro grossly intact Psych/Mental Status: Normal Affect, Appropriate. Assessment & Plan Assessment/Plan (1) Sigmoid diverticulitis: (2) Pneumonia: PLAN: Plan 67-year-old male was admitted with fever Tmax 101.7 Fahrenheit, diarrhea which resolved by admission, cough and nausea. 1. Neutropenic fever, hypotension hypoxia due to left-sided pneumonia and sigmoid diverticulitis: Patient has mild leukocytosis with left shift, promyelocytes, metamyelocytes, metamyelocytes and monocytes. Lactic acid normal. Hypotension likely due to recent diarrhea. BP did not drop less than 90 mmHg. Chest x-ray individually reviewed and shows mild increased interstitial markings bilaterally but under ventilated. Repeat chest x-ray mild left base markings but improved aeration. CT abdomen reported short segment of sigmoid diverticulitis with increased circumferential wall thickening and enhancement. Patient on IV vancomycin and Zosyn. IV vancomycin discontinued. Patient blood pressure has improved. 2. Metastatic prostate cancer status post remote prostatectomy, Lupron treatment with mets to bone:History of metastatic prostate cancer with mets to bone. Last chemotherapy 1 week ago. Patient had neutropenic fever after initial dose of previous chemotherapy of Taxotere. On Zytiga. Patient states his oncologist Dr. Garcia recently changed from Dr. Lopez 3. Hypophosphatemia: Phosphorus 2.2.K3.5. Neutra-Phos ordered 4. Chronic anemia, normocytic: Admission hemoglobin 11, baseline prior noted 10-12, associated with underlying prostate cancer with metastatic disease and chemotherapy treatments, will continue to trend. #6.? Chronic HFpEF possible due to hypertension: No ECHO found in our system and [facility] sync system. 2D echo is ordered. Continue aspirin and statin. Hold Coreg and diuretic therapy because of low blood pressure and hypotension. 2D echo is done and shows EF 65%, mild LA enlargement and mild concentric LVH. Stage I diastolic dysfunction suggestive of mild chronic HFpEF. #7.? Hypertension: Hold Coreg/isosorbide/Lasix due to hypotension, resume once appropriate. #8.? Hyperlipidemia: continue patient on statin and Zetia regimen. #9.? Gout: continue patient home allopurinol regimen. #10.? Obesity: Weight loss and lifestyle changes encouraged. #11.? KIMBERLY: CPAP nightly. #12.? DVT prophylaxis: SCDs, Lovenox. Clinical Impression(s) from Imaging Studies Chest X-Ray 07/01/22 16:22 IMPRESSION: Slight increase in interstitial markings may represent edema and/or infection. Electronically Signed: Dustin Hatch MD at 17:20 EST , Abdomen/Pelvis CT 07/01/22 16:29 IMPRESSION: Acute sigmoid diverticulitis. No focal fluid collection or free air. Findings suspicious for worsening of sclerotic osseous metastases when compared to prior on 06/07/2022. Moderate splenomegaly. Status post prostatectomy with postsurgical changes. Electronically Signed: Dustin Hatch MD at 19:13 EST , ADDENDUM: 07/01/221938 IMPRESSION: Acute sigmoid diverticulitis. No focal fluid collection or free air. Findings suspicious for worsening of sclerotic osseous metastases when compared to prior on 06/07/2022. Moderate splenomegaly. Status post prostatectomy with postsurgical changes. N.B. : Sari Arzate RN, confirmed on 07/01/2022 19:32:46 (ET) that the healthcare facility has received the radiology report. Electronically Signed: Dustin Hatch MD at 19:13 EST , Chest X-Ray 07/02/22 05:55 IMPRESSION: Mild residual increased markings at the left lung base although there has been improved aeration as compared to prior study. Electronically Signed: Gideon Ibarra MD at 8:16 EST , Echocardiogram 07/02/22 07:47 Interpretation Summary Normal LV size. Mild concentric left ventricular hypertrophy. Left ventricular systolic function is normal. The estimated ejection fraction is 65 %. Stage 1 diastolic dysfunction. The left atrium is moderately enlarged. Charges/Coding Visit Charges Inpatient E&M: 71954 Subs Hosp L3
--- NOTE | 2022-07-02 07:47 | ECHOD_ITS ---
Reason For Study: CHF Procedure Myocardial strain analysis was performed in this exam to aid in the assessment of cardiac function. This was a 2D Doppler, Color Flow transthoracic echocardiogram. Exam performed portable in patient room. Left Ventricle Normal LV size. Mild concentric left ventricular hypertrophy. Left ventricular systolic function is normal. The estimated ejection fraction is 65 %. Stage 1 diastolic dysfunction. No regional wall motion abnormalities noted. Right Ventricle Normal RV size. Normal systolic function. Atria The left atrium is moderately enlarged. Normal right atrium. Mitral Valve Normal mitral valve. Tricuspid Valve Normal tricuspid valve. Aortic Valve Normal aortic valve. Trisinus/trileaflet aortic valve. Pulmonic Valve The pulmonic valve is not well visualized. Great Vessels Normal aortic root. The pulmonary artery is normal size. Normal inferior vena cava. Pericardium/Pleural No pericardial effusion. MMode/2D Measurements & Calculations LVIDd: 5.1 cm IVSd: 1.4 cm Ao root diam: 4.1 cm LVIDs: 3.2 cm LVPWd: 1.2 cm LA dimension: 4.3 cm FS: 37.4 % LAV(MOD-bp): 81.0 ml LA A4 area: 25.5 cm2 RA A4 area: 18.7 cm2 LAV(MOD-bp) Indexed: 39.0 ml/m2 LAV(MOD-sp2): 68.0 ml LAV(MOD-sp4): 80.5 ml Time Measurements MV dec time: 0.24 sec Doppler Measurements & Calculations MV E max josue: 77.1 cm/sec Lat Peak E' Josue: 13.0 cm/sec Med Peak E' Josue: 8.9 cm/sec MV A max josue: 86.2 cm/sec E/E' lat: 5.9 E/E' med: 8.6 MV E/A: 0.89 MV V2 max: 110.2 cm/sec MV dec slope: 364.4 cm/sec2 Ao V2 max: 137.8 cm/sec MV max P.9 mmHg Ao max P.6 mmHg MV V2 mean: 56.6 cm/sec MV mean P.5 mmHg MV V2 VTI: 29.6 cm LV V1 max: 124.7 cm/sec PA V2 max: 142.3 cm/sec LV V1 max P.2 mmHg PA V2 mean: 94.0 cm/sec ECHO/Echo Complete Interpretation Summary Normal LV size. Mild concentric left ventricular hypertrophy. Left ventricular systolic function is normal. The estimated ejection fraction is 65 %. Stage 1 diastolic dysfunction. The left atrium is moderately enlarged. Ordering Physician: Bull Mcguire Performed By: Yusef Thorpe RCS
[2022-07-02 08:23] VITALS: O2SAT 95
[2022-07-02 08:26] LABS: Hemoglobin A1c 5.8 % (3.8-5.6)
[2022-07-02 09:29] VITALS: BP 153/81; PULSE 77; RESP 18; TEMP 37.4; O2SAT 98
[2022-07-02] MEDS: Aspirin E.C. 81 MG Tablet PO (09:40)
[2022-07-02] MEDS: Ezetimibe 10 MG Tablet PO (09:40)
[2022-07-02] MEDS: Enoxaparin 40 MG/0.4 ML Syringe SC (09:40)
[2022-07-02] MEDS: Allopurinol 100 MG Tablet PO (09:40)
[2022-07-02] MEDS: Vancomycin IV 1,000 MG/200 ML BAG 200 MG IV (11:24)
[2022-07-02 12:52] LABS: Pathologist Review Reviewed
[2022-07-02 13:04] LABS: Pathologist Review Reviewed
--- NOTE | 2022-07-02 13:52 | CASEMGMT ---
JAMESON BRAUN readmission note: Prior admission: Admitted 06/07/22 w/neutropenic fever s/p chemo about a week prior. Pt has metastatic prostate CA w/mets to bone and sees Dr Garcia, oncologist. He is independent and denied having any discharge needs @ d/c. Pt discharged home 06/09/22. Current admission: Admitted 07/01/22 w/neutropenic fever and PNA. Pt had chemo about a week ago and presented to ED w/elevated temp. JAMESON BRAUN to room. Introduced self and role. Pt resting in bed. @ bedside. Pt states he has been taking all of his medications @ home as prescribed and has been in to see Dr Garcia and Dr Valenzuela, his neurosurgeon, since last admission. He states he just had an echo done @ [facility] as well. He received Neulasta @ Dr Garcia's office after his last chemo tx. He states several days after getting chemo, he loses his sense of taste and then does not drink or each much and he was wondering if getting an IVF infusion during that time would be helpful. JAMESON BRAUN advised him to discuss this with Dr Garcia. Also offered to have buffer operator come to talk w/him for other suggestions/recommendations. He states the buffer operator was in to see him earlier and did give him some ideas that he thinks may be helpful. He states he will talk w/Dr Garcia as well. He and his deny having any concerns w/pt discharging back home and they deny having any further discharge planning needs. Vidal DYSON RN, CM
[2022-07-02 15:44] VITALS: BP 150/77; PULSE 72; RESP 18; TEMP 37; O2SAT 97
[2022-07-02] MEDS: Na Biphos/Potassium Phosphate PACKET 1 PACKET PO (17:34)
[2022-07-02] MEDS: Acetaminophen 325 MG Tablet 650 MG PO (19:43)
[2022-07-02 20:12] VITALS: O2SAT 97
[2022-07-02 20:50] VITALS: BP 135/98; PULSE 85; PULSE 88; RESP 18; TEMP 36.9; O2SAT 95
[2022-07-02] MEDS: Carvedilol 25 MG Tablet PO (20:51)
[2022-07-02] MEDS: Atorvastatin Calcium 40 MG Tablet PO (20:51)
[2022-07-02] MEDS: MELATONIN 3 MG TABLET PO (20:51)
[2022-07-02] MEDS: Ondansetron 4 MG/2 ML Vial IV (20:51)
[2022-07-03 04:45] VITALS: BP 118/64; PULSE 66; RESP 18; TEMP 37.2; O2SAT 97
[2022-07-03] MEDS: Na Biphos/Potassium Phosphate PACKET 1 PACKET PO (04:55)
[2022-07-03 07:03] VITALS: O2SAT 97
--- NOTE | 2022-07-03 08:46 | PCM.PN.HOSP ---
Reason for Visit Reason for Visit: Diagnoses Pneumonia, unspecified organism (07/01/22) Diverticulitis of large intestine without perforation or abscess without bleeding (07/01/22) Objective Data Objective Data Vital Signs: Vital Signs Temp Pulse Resp BP Pulse Ox O2 Del Method O2 Flow Rate 98.9 F 66 18 118/64 97 Nasal Cannula 2 07/03/22 04:45 07/03/22 04:45 07/03/22 04:45 07/03/22 04:45 07/03/22 07:03 07/03/22 07:03 07/03/22 07:03 Oxygen Flow Rate (L/min) 2 Oxygen Delivery Method Nasal Cannula Weight: 253 lb 4.978 oz Body Mass Index (BMI) 28.7 Intake & Output: Intake and Output for Last 24 Hours 07/01/22 07/02/22 07/03/22 23:59 23:59 23:59 Intake Total 4160 / 4160 2550 / 2550 170 / 170 Balance 4160 / 4160 2550 / 2550 170 / 170 Lab / Micro Data Result Diagrams: 07/02/22 06:11 07/02/22 06:11 Labs: Laboratory Results - last 24 hr 07/01/22 15:42: Diff Path Review Reviewed 07/02/22 06:11: Diff Path Review Reviewed Micro: Microbiology 07/02/22 06:12 Stool Stool Lactoferrin - Final 07/02/22 06:12 Stool Enteric Bacteriology - Final 07/02/22 06:12 Stool C. difficile DNA Amplification - Final 07/01/22 20:52 Interface Orders Respiratory Panel (PCR) - Final 07/01/22 16:14 Interface Orders Streptococcus pneumoniae Antigen (M - Final 07/01/22 16:14 Interface Orders Legionella Antigen - Final 07/01/22 15:34 Nasal Secretion SARS-CoV-2 & FLU Antigen (Rapid) - Final Radiography Diagnostic Testing: Radiology Impression Echocardiogram 07/02/22 07:47 Interpretation Summary Normal LV size. Mild concentric left ventricular hypertrophy. Left ventricular systolic function is normal. The estimated ejection fraction is 65 %. Stage 1 diastolic dysfunction. The left atrium is moderately enlarged. Ordering Physician: Bull Mcguire Performed By: Yusef Thorpe RCS Physical Exam Narrative Seen and examined. Patient had fever, mild cough. Denies abdominal pain. Physical exam General: Alert, Oriented x3, Cooperative HEENT: Atraumatic, PERRLA, EOMI, Normocephalic Oral: Oral mucosa moist. No Gingival or Mucosal Lesions/ Ulcerations Neck: Supple, No JVD, Negative Carotid Bruits Lungs: Air entry diminished in bilateral lung bases. No crepitation/rhonchi Cardiovascular: Regular rate, Regular Rhythm, Normal S1, Normal S2, No murmurs Abdomen: Bowel Sounds Present, Soft, Non Tender, Non-Distended. No palpable mass. : No renal angle tenderness. No suprapubic tenderness. Extremities: No edema, Capillary Refill Less than 3 Seconds Skin: No rashes, No breakdown Musculoskeletal: No Tenderness to Palpation of Joints or Extremities Neurological: Cranial nerves II-XII grossly intact, DTR 2+/4 and Symmetrical, Neuro grossly intact Psych/Mental Status: Normal Affect, Appropriate. Assessment & Plan Assessment/Plan (1) Sigmoid diverticulitis: (2) Pneumonia: PLAN: Plan 67-year-old male was admitted with fever Tmax 101.7 Fahrenheit, diarrhea which resolved by admission, cough and nausea. 1. Fever, hypotension hypoxia due to left-sided pneumonia and sigmoid diverticulitis: Patient has mild leukocytosis with left shift, promyelocytes, metamyelocytes, metamyelocytes and monocytes. Lactic acid normal. Hypotension likely due to recent diarrhea. BP did not drop less than 90 mmHg. Chest x-ray individually reviewed and shows mild increased interstitial markings bilaterally but under ventilated. Repeat chest x-ray mild left base markings but improved aeration. CT abdomen reported short segment of sigmoid diverticulitis with increased circumferential wall thickening and enhancement. Patient on IV vancomycin and Zosyn. IV vancomycin discontinued. Patient blood pressure has improved. 07/03: Repeat labs shows leukocytosis with neutrophilic left shift. Normocytic anemia. Promyelocyte, mid pneumocytes,metamyelocytes and bands 6%. Enteric bacteriology panel, C. difficile, respiratory panel and urinary antigens are negative. Stool for WBC lactoferrin positive. 2. Metastatic prostate cancer status post remote prostatectomy, Lupron treatment with mets to bone:History of metastatic prostate cancer with mets to bone. Last chemotherapy 1 week ago. Patient had neutropenic fever after initial dose of previous chemotherapy of Taxotere. On Zytiga. Patient states his oncologist Dr. Garcia recently changed from Dr. Lopez 3. Hypophosphatemia: Phosphorus 2.2.K3.5. Neutra-Phos ordered 4. Chronic anemia, normocytic: Admission hemoglobin 11, baseline prior noted 10-12, associated with underlying prostate cancer with metastatic disease and chemotherapy treatments, will continue to trend. #6.? Chronic HFpEF possible due to hypertension: No ECHO found in our system and [facility] sync system. 2D echo is ordered. Continue aspirin and statin. Hold Coreg and diuretic therapy because of low blood pressure and hypotension. 2D echo is done and shows EF 65%, mild LA enlargement and mild concentric LVH. Stage I diastolic dysfunction suggestive of mild chronic HFpEF. #7.? Hypertension: Hold Coreg/isosorbide/Lasix due to hypotension, resume once appropriate. #8.? Hyperlipidemia: continue patient on statin and Zetia regimen. #9.? Gout: continue patient home allopurinol regimen. #10.? Obesity: Weight loss and lifestyle changes encouraged. #11.? KIMBERLY: CPAP nightly. #12.? DVT prophylaxis: SCDs, Lovenox. Clinical Impression(s) from Imaging Studies Chest X-Ray 07/01/22 16:22 IMPRESSION: Slight increase in interstitial markings may represent edema and/or infection. Electronically Signed: Dustin Hatch MD at 17:20 EST , Abdomen/Pelvis CT 07/01/22 16:29 IMPRESSION: Acute sigmoid diverticulitis. No focal fluid collection or free air. Findings suspicious for worsening of sclerotic osseous metastases when compared to prior on 06/07/2022. Moderate splenomegaly. Status post prostatectomy with postsurgical changes. Electronically Signed: Dustin Hatch MD at 19:13 EST , ADDENDUM: 07/01/22 1939 IMPRESSION: Acute sigmoid diverticulitis. No focal fluid collection or free air. Findings suspicious for worsening of sclerotic osseous metastases when compared to prior on 06/07/2022. Moderate splenomegaly. Status post prostatectomy with postsurgical changes. N.B. : Sari Arzate RN, confirmed on 07/01/2022 19:32:46 (ET) that the healthcare facility has received the radiology report. Electronically Signed: Dustin Hatch MD at 19:13 EST , Chest X-Ray 07/02/22 05:55 IMPRESSION: Mild residual increased markings at the left lung base although there has been improved aeration as compared to prior study. Electronically Signed: Gideon Ibarra MD at 8:16 EST , Echocardiogram 07/02/22 07:47 Interpretation Summary Normal LV size. Mild concentric left ventricular hypertrophy. Left ventricular systolic function is normal. The estimated ejection fraction is 65 %. Stage 1 diastolic dysfunction. The left atrium is moderately enlarged.
--- NOTE | 2022-07-03 09:54 | DCINST_ITS ---
Discharge Instructions Diet Discharge Diet: Light diet - advance as tolerated and Soft diet (Soft diet for 5 days advance regular food. Avoid nuts) Activity Discharge Activity: Return to Normal Activity Weight Bearing Status: Weight bearing as tolerated Dressing / Incision Call your doctor if you observe: Fever of 101 or Higher, Coldness, Increased Pain, Numbness or Tingling, Change in Color, Inability to urinate, Inability to have a bowel movement, Shortness of breath, Dizziness, Fainting spells, Swelling in the ankles, Chest pain, Prolonged hiccupping, Increased palpitations (irregular heartbeat) and Calf discomfort Follow Up Care When: IN 2 WEEKS Test Results: Test results from this visit will be discussed in further detail at your follow- up appointment, if applicable. Discharge Plan Admission Admit Date/Time: 07/01/22 18:42 Primary Reason for Your Visit: Fever, hypotension, diarrhea due to sigmoid diverticulitis and pneumonia Attending Provider: Bull Mcguire Primary Care Provider: Dulce Sood Consulting Providers: Felicita Grullon Instructions Additional Instructions / Restrictions: Probiotic, lactobacillus tablets available [id number]. 1 tablet twice daily. Discharge Orders/Prescriptions Prescriptions: New potassium, sodium phosphates 280-160-250 mg Powder In Packet 1 packet PO TID 3 Days Qty: 9 0RF amoxicillin-pot clavulanate 875-125 mg tablet 1 tab PO BID 7 Days Qty: 14 0RF Lactobacillus acidophilus 1 billion cell tablet 1,000 mmu cells PO BID 10 Days Qty: 20 0RF Continued carvedilol 25 mg Tablet 25 mg PO BID Rx Instructions: must administer with a meal/food prochlorperazine maleate 10 mg Tablet 10 mg PO Q6H PRN PRN (Reason: Nausea) allopurinol 100 mg Tablet 100 mg PO DAILY aspirin 81 mg Tablet,Delayed Release (Dr/Ec) 81 mg PO DAILY ezetimibe 10 mg Tablet 10 mg PO DAILY rosuvastatin 20 mg Tablet 20 mg PO QHS Held furosemide 40 mg Tablet 40 mg PO QODAY Hold Instructions: Hold for 2 days. isosorbide mononitrate 60 mg Tablet Extended Release 24 Hr 60 mg PO DAILY Hold Instructions: Hold for SBP less than 130 mmHg for next 2 days Referrals / Follow Up: Dulce Sood DO [Primary Care Provider] - Within 1 Week Masci,Hilario, DO [Med Staff - Active Staff] - Within 2 Weeks Disposition Disposition (needs filled in before D/C Order can be placed): Home, Self Care
[2022-07-03 10:26] VITALS: BP 134/69; PULSE 64; RESP 18; TEMP 36.6; O2SAT 100
[2022-07-03] MEDS: Furosemide 40 MG Tablet PO (11:15)
[2022-07-03] MEDS: Carvedilol 25 MG Tablet PO (11:15)
[2022-07-03] MEDS: Allopurinol 100 MG Tablet PO (11:15)
[2022-07-03] MEDS: Aspirin E.C. 81 MG Tablet PO (11:15)
[2022-07-03] MEDS: Enoxaparin 40 MG/0.4 ML Syringe SC (11:16)
[2022-07-03] MEDS: Diphenoxylate/Atrop 1 Tablet PO (11:16)
[2022-07-03] MEDS: Pantoprazole Sodium 40 MG Tablet PO (11:16)
--- NOTE | 2022-07-03 12:06 | DS.PCM_ITS ---
Providers Date of Admission: 07/01/22 Date of Discharge: 07/03/22 Primary Care Physician: Dr. Dulce Sood, DO Reason For Visit: NEUTROPENIC FEVER, PNA Diagnosis Discharge Diagnosis (1) Sigmoid diverticulitis: Status: Acute Code(s): K57.32 - Diverticulitis of large intestine without perforation or abscess without bleeding (2) Pneumonia: Status: Acute Code(s): J18.9 - Pneumonia, unspecified organism Plan This is 67-year-old pleasant gentleman was admitted with fever Tmax 101.7 Fahrenheit, diarrhea which resolved by admission, cough and nausea.? He had mild abdominal discomfort in the mid abdominal region. 1.? Fever, hypotension hypoxia due to left-sided? pneumonia and sigmoid diverticulitis: Patient has mild leukocytosis with left shift, promyelocytes, metamyelocytes, metamyelocytes and monocytes.? Lactic acid normal.? Hypotension likely due to recent diarrhea.? BP did not drop less than 90 mmHg.? Chest x-ray individually reviewed and shows mild increased interstitial markings bilaterally but under ventilated.? Repeat chest x-ray mild left base markings but? improved aeration.? CT abdomen reported short segment of sigmoid diverticulitis with increased circumferential wall thickening and enhancement.? Patient on IV vancomycin and Zosyn.? IV vancomycin discontinued.? Patient blood pressure has improved. 07/03: Patient symptoms of abdominal discomfort diarrhea is much improved. No fever. Blood pressure has recovered to systolic 130. Patient does not meet the criteria for sepsis as lactic acid and SBP more than 90 mmHg. Patient is discharged on Augmentin for 7 more days. Advised follow-up colonoscopy with Dr. Diaz in 1 month. Recommended [id number] probiotic, lactobacillus twice daily for 10 days. Continue incentive spirometry and Pep for 1 more week. 2.? Metastatic prostate cancer status post remote prostatectomy, Lupron treatment with mets to bone:History of metastatic prostate cancer with mets to bone.? Last chemotherapy 1 week ago.? Patient had neutropenic fever after initial dose of previous chemotherapy of Taxotere.? On Zytiga.? Patient states his oncologist Dr. Garcia recently changed from Dr. Lopez 3.? Hypophosphatemia: Phosphorus 2.2.K3.5.? Neutra-Phos ordered 07/03: Prescription for Neutra-Phos sent to patient's pharmacy. 4.? Chronic anemia, normocytic: Admission hemoglobin 11, baseline prior noted 10-12, associated with underlying prostate cancer with metastatic disease and chemotherapy treatments, will continue to trend. #6.? Chronic HFpEF possible due to hypertension: No ECHO found in our system and [facility] system.? 2D echo is ordered.? Continue aspirin and statin.? Hold Coreg and diuretic therapy because of low blood pressure and hypotension.? 2D echo is done and shows EF 65%, mild LA enlargement and mild concentric LVH.? Stage I diastolic dysfunction suggestive of mild chronic HFpEF. ?#7.? Hypertension: Hold Coreg/isosorbide/Lasix due to hypotension, resume once appropriate. 07/03: Continue Coreg. Hold Lasix and isosorbide mononitrate as patient is still recovering from hypotension. #8.? Hyperlipidemia:? continue patient on statin and Zetia regimen. #9.? Gout:? continue patient home allopurinol regimen. #10.? Obesity: Weight loss and lifestyle changes encouraged. #11.? KIMBERLY: CPAP nightly. #12.? DVT prophylaxis: SCDs, Lovenox. Patient feels good around noontime therefore wants to go home. Advised to take lunch soft food now and then for next 5 days. Discharge medication reconciliation done. Discharge follow-up instructions completed. Discharge process discussed with the patient and all questions were answered to patient's satisfaction. Follow-up with Dr. Garcia. Total time spent, exact 35 minutes on discharge meds reconciliation, examination, coordination of care with nurses and ancillary staff, review of i maging and blood test and discussion with the patient on follow-up instructions. Medications at Discharge Home Medications allopurinol 100 mg tablet 100 mg PO DAILY gout 06/07/22 aspirin 81 mg tablet,delayed release 81 mg PO DAILY heart health 06/07/22 carvedilol 25 mg tablet 25 mg PO BID blood pressure 06/07/22 ezetimibe 10 mg tablet 10 mg PO DAILY cholesterol 06/07/22 furosemide 40 mg tablet 40 mg PO QODAY water pill 06/07/22 isosorbide mononitrate 60 mg tablet,extended release 24 hr 60 mg PO DAILY blood pressure 06/07/22 prochlorperazine maleate 10 mg tablet 10 mg PO Q6H PRN PRN Nausea 06/07/22 rosuvastatin 20 mg tablet 20 mg PO QHS cholesterol 06/07/22 Lactobacillus acidophilus 1 billion cell tablet 1,000 mmu cells PO BID 10 days #20 tabs 07/03/22 amoxicillin 875 mg-potassium clavulanate 125 mg tablet 1 tab PO BID 7 days #14 tabs 07/03/22 potassium, sodium phosphates 280 mg-160 mg-250 mg oral powder packet 1 packet PO TID 3 days #9 ea 07/03/22 Physical Exam Narrative Occasional cough. Has much improved. No fever. No abdominal pain. Patient having soft bowel movement.Diarrhea has much improved. hysical exam General: Alert, Oriented x3, Cooperative HEENT: Atraumatic, PERRLA, EOMI, Normocephalic Oral: Oral mucosa moist.? No Gingival or Mucosal Lesions/ Ulcerations Neck: Supple, No JVD, Negative Carotid Bruits Lungs:? Air entry diminished in bilateral lung bases.? No crepitation/rhonchi/wheezing. No tachypnea or hypoxia. Cardiovascular: Regular rate, Regular Rhythm, Normal S1, Normal S2, No murmurs Abdomen: Bowel Sounds Present, Soft, Non Tender, Non-Distended.? No palpable mass. : No renal angle tenderness.? No suprapubic tenderness. Extremities: No edema, Capillary Refill Less than 3 Seconds Skin: No rashes, No breakdown Musculoskeletal: No Tenderness to Palpation of Joints or Extremities Neurological: Cranial nerves II-XII grossly intact, DTR? 2+/4 and Symmetrical, Neuro grossly intact Psych/Mental Status: Normal Affect, Appropriate. Weight / BMI Weight Weight: 253 lb 4.978 oz Body Mass Index (BMI) 28.7 ABG / Lab / Microbiology Data Result Diagrams: 07/02/22 06:11 07/02/22 06:11 Laboratory: Laboratory Results - last 24 hr 07/01/22 15:42: Diff Path Review Reviewed 07/02/22 06:11: Diff Path Review Reviewed Microbiology: Microbiology 07/01/22 16:14 Urine, Clean Catch Urine Culture - Preliminary Culture exhibits no growth. 07/02/22 06:12 Stool Stool Lactoferrin - Final 07/02/22 06:12 Stool Enteric Bacteriology - Final 07/02/22 06:12 Stool C. difficile DNA Amplification - Final 07/01/22 20:52 Interface Orders Respiratory Panel (PCR) - Final 07/01/22 16:14 Interface Orders Streptococcus pneumoniae Antigen (M - Final 07/01/22 16:14 Interface Orders Legionella Antigen - Final 07/01/22 15:34 Nasal Secretion SARS-CoV-2 & FLU Antigen (Rapid) - Final Radiography Diagnostic Testing: Radiology Impression Echocardiogram 07/02/22 07:47 Interpretation Summary Normal LV size. Mild concentric left ventricular hypertrophy. Left ventricular systolic function is normal. The estimated ejection fraction is 65 %. Stage 1 diastolic dysfunction. The left atrium is moderately enlarged. Ordering Physician: Bull Mcguire Performed By: Yusef Thorpe RCS D/C Instructions Discharge Diet: Light diet - advance as tolerated and Soft diet (Soft diet for 5 days advance regular food. Avoid nuts) Weight Bearing Status: Weight bearing as tolerated Call your doctor if you observe: Fever of 101 or Higher, Coldness, Increased Pain, Numbness or Tingling, Change in Color, Inability to urinate, Inability to have a bowel movement, Shortness of breath, Dizziness, Fainting spells, Swelling in the ankles, Chest pain, Prolonged hiccupping, Increased palpitations (irregular heartbeat) and Calf discomfort When: IN 2 WEEKS Meaningful Use Info Meaningful Use Diagnoses (Choose all that apply): None applicable Discharge Plan Admission Admit Date/Time: 07/01/22 18:42 Primary Reason for Your Visit: Fever, hypotension, diarrhea due to sigmoid diverticulitis and pneumonia Attending Provider: Bull Mcguire Primary Care Provider: Dulce Sood Consulting Providers: Felicita Grullon Instructions Additional Instructions / Restrictions: Probiotic, lactobacillus tablets available [id number]. 1 tablet twice daily. Discharge Orders/Prescriptions Prescriptions: New potassium, sodium phosphates 280-160-250 mg Powder In Packet 1 packet PO TID 3 Days Qty: 9 0RF amoxicillin-pot clavulanate 875-125 mg tablet 1 tab PO BID 7 Days Qty: 14 0RF Lactobacillus acidophilus 1 billion cell tablet 1,000 mmu cells PO BID 10 Days Qty: 20 0RF Continued carvedilol 25 mg Tablet 25 mg PO BID Rx Instructions: must administer with a meal/food prochlorperazine maleate 10 mg Tablet 10 mg PO Q6H PRN PRN (Reason: Nausea) allopurinol 100 mg Tablet 100 mg PO DAILY aspirin 81 mg Tablet,Delayed Release (Dr/Ec) 81 mg PO DAILY ezetimibe 10 mg Tablet 10 mg PO DAILY rosuvastatin 20 mg Tablet 20 mg PO QHS Held furosemide 40 mg Tablet 40 mg PO QODAY Hold Instructions: Hold for 2 days. isosorbide mononitrate 60 mg Tablet Extended Release 24 Hr 60 mg PO DAILY Hold Instructions: Hold for SBP less than 130 mmHg for next 2 days Referrals / Follow Up: Dulce Sood DO [Primary Care Provider] - Within 1 Week Hilario Garcia DO [Med Staff - Active Staff] - Within 2 Weeks Glenn Diaz DO [Med Staff - Active Staff] - Within 1 Month (for follow up Colonoscopy after Sigmoid colonoscopy) Disposition Disposition (needs filled in before D/C Order can be placed): Home, Self Care Charges/Coding Visit Charges Inpatient E&M: 47469 Disch Hosp >30min
[2022-07-03] MEDS: 0.9% Saline Lock 10 ML Syringe IV (13:00)
--- NOTE | 2022-07-03 13:04 | CM.UR ---
RN CM NOTE: Pt being discharged. RN CM to room. Pt denies having any discharge planning needs and no needs identified. Vidal BSN RN CM
== END 2022-07-03 14:00 | disposition home or self-care (01) | DRG 391 ==
LOC: ED 15:50 → MS3 18:51
PROVIDERS: Admitting Provider Family Medicine; Emergency Provider Student in an Organized Health Care Education/Training Program; PCP Family Medicine; Visit Provider Internal Medicine
DX: K57.32 Diverticulitis of large intestine without perforation or abscess without bleeding (principal); J18.9 Pneumonia, unspecified organism; C79.51 Secondary malignant neoplasm of bone; I50.32 Chronic diastolic (congestive) heart failure; I11.0 Hypertensive heart disease with heart failure; C61 Malignant neoplasm of prostate; I95.9 Hypotension, unspecified; G47.33 Obstructive sleep apnea (adult) (pediatric); E78.5 Hyperlipidemia, unspecified; M10.9 Gout, unspecified; Z79.82 Long term (current) use of aspirin; Z92.21 Personal history of antineoplastic chemotherapy; R73.9 Hyperglycemia, unspecified; Z82.3 Family history of stroke; R16.1 Splenomegaly, not elsewhere classified; E83.39 Other disorders of phosphorus metabolism; D64.9 Anemia, unspecified; E66.9 Obesity, unspecified; Z68.28 Body mass index [BMI] 28.0-28.9, adult
CPT/HCPCS: 36415; 36591; 71045; 71046; 74177; 80048; 80053; 80076; 81001; 83036; 83605; 83630; 83690; 83735; 84100; 84145; 85025; 85610; 85730; 87040; 87086; 87177; 87209; 87428; 87449; 87493; 87506; 87633; 93005; 93306; 94668; 97802; 99252; 99285; J7030; J7040; Q9967; A4216; G0463; J2405

== ENCOUNTER → 2022-09-03 | Outpatient (CLI) | payer MEDICARE, OTHER, SELFPAY ==
[2022-09-03 10:51] LABS: ALB/GLOB Ratio 1.2 RATIO (0.9-2.4); AST(SGOT) 16 U/L (15-37); Alanine Aminotransfer ALT/SGPT 18 U/L (16-61); Albumin, Serum 3.5 g/dL (3.2-5.0); Alkaline Phosphatase 63 U/L (45-117); Anion Gap 5 (5-15); BUN 10 mg/dL (7-18); Calcium,Total 8.7 mg/dL (8.5-10.1); Chloride 109 mmol/L (98-107); Creatinine, Serum 1.11 mg/dL (0.70-1.30); EST Glomerular Filtration Rate 71 mL/min (>60); Est Glom Filt Rate - Afr Amer 85 mL/min (>60); Globulin 2.9 g/dL (2.2-4.2); Glucose 169 mg/dL (74-106); Potassium 3.3 mmol/L (3.5-5.1); Protein, Total 6.4 g/dL (6.4-8.2); Sodium Level 141 mmol/L (136-145)
== END | disposition home or self-care (01) ==
LOC: LABSPEC 10:12
PROVIDERS: PCP Family Medicine; Referring Provider Nurse Practitioner; Visit Provider Nurse Practitioner
DX: C61 Malignant neoplasm of prostate (principal); C79.51 Secondary malignant neoplasm of bone; R59.0 Localized enlarged lymph nodes
CPT/HCPCS: 80053

== ENCOUNTER → 2023-01-22 | Outpatient (CLI) | payer MEDICARE, OTHER, SELFPAY ==
--- NOTE | 2023-01-22 07:16 | CT_ITS ---
STUDY: CT ABDOMEN AND PELVIS WITH CONTRAST REASON FOR EXAM: Male, 67 years old. F/U METS PROSTATE CANCER -- IV CONTRAST ONLY RADIATION DOSAGE (If Supplied By Facility): CTDIvol = ( 20.54 ) mGy, DLP = ( 1532.79 ) mGycm TECHNIQUE: IV 100mL Isovue-300 was administered. Transaxial images were obtained from the dome of the diaphragm to the symphysis pubis. Multiplanar coronal and sagittal images were reformatted. Individualized Dose Optimization Techniques Were Used For This CT. COMPARISON: Prior examination of 07/01/2022. FINDINGS: The visualized lung bases are unremarkable. The visualized portions of the heart are within normal limits. Normal liver. Normal gallbladder and extrahepatic biliary system. Mild splenomegaly unchanged. Normal pancreas. Normal bilateral adrenal glands. Bilateral simple renal cysts are again seen, the largest is in the lower pole of the left kidney measuring about 2.7 cm. Follow-up exam is needed. There is a small hiatal hernia. Normal in caliber small bowel loops. Sigmoid diverticulosis without evidence of acute diverticulitis. The appendix is visualized and appears normal. Atherosclerotic calcifications of the abdominal aorta without evidence of aneurysm. . Small left periaortic nodes, the largest measures about 1.1 cm essentially unchanged. No evidence of new adenopathy. The bladder is suboptimally distended. Surgical sutures clips from previous prostatectomy. No pelvic mass. No free fluid There is a small umbilical hernia containing fat. Sclerotic bony lesions in the right side of the pelvis and T11 essentially unchanged since the prior examination. CT/Abdomen/Pelvis W IV Cont ONLY IMPRESSION: 1. Sclerotic bony lesions essentially unchanged prior exam consistent with metastases. 2. No new lesions are identified. 3. No focal acute inflammatory process Electronically Signed: Tito Chappell MD at 8:24 EDT ,
[2023-01-22] MEDS: 0.9% Saline Lock 10 ML Syringe IV (07:35)
--- NOTE | 2023-01-22 07:36 | RAD_ITS ---
INDICATION: F/U METS PROSTATE CANCER EXAMINATION/TECHNIQUE: X-RAY - XR Chest 2 Views COMPARISON: 07/02/2022 and 06/07/2022. FINDINGS: LINES/DEVICES: Right-sided Port-A-Cath in stable position with the tip in the superior vena cava. LUNGS: Vague subtle density right midlung zone likely due to summation of pulmonary markings. No focal consolidation is seen. No evidence of pleural effusions. MEDIASTINUM AND CARDIOVASCULAR STRUCTURES: Cardiac silhouette not enlarged. Central airways and mediastinal contour are unremarkable. BONES AND SOFT TISSUES: Unremarkable. RAD/Chest PA and Lateral IMPRESSION: No active pulmonary disease. Electronically Signed: Tito Chappell MD at 8:49 EDT ,
[2023-01-22 07:40] LABS: CREATININE FINGERSTICK 1.4 mg/dL (0.70-1.30)
== END | disposition home or self-care (01) ==
LOC: CT 07:13
PROVIDERS: PCP Family Medicine; Referring Provider Internal Medicine Hematology & Oncology; Visit Provider Internal Medicine Hematology & Oncology
DX: C61 Malignant neoplasm of prostate (principal); C79.51 Secondary malignant neoplasm of bone; C77.2 Secondary and unspecified malignant neoplasm of intra-abdominal lymph nodes
CPT/HCPCS: 71046; 74177; Q9967; A4216

== ENCOUNTER → 2023-01-25 | Outpatient (CLI) | payer MEDICARE, OTHER, SELFPAY ==
--- NOTE | 2023-01-25 07:22 | NM_ITS ---
CLINICAL: 67-year-old male with history of primary prostate carcinoma. WHOLE BODY 99m Tc MDP RADIONUCLIDE BONE SCINTIGRAPHY COMPARISON: None available FINDINGS: Following the intravenous administration of 26.0 mCi of 99m Tc MDP, whole body bone images reveal: 1. Increased radiopharmaceutical concentration is defined in the bilateral sacroiliac joints, the right superior anterior acetabulum, the fourth thoracic vertebra posteriorly on the left, the left proximal humeral metaphysis. 2. Enhanced uptake is noted in the acromioclavicular compartments of both shoulders, sternoclavicular compartment of the left shoulder, the medial tibial compartment of the right knee, patellofemoral compartments of both knees, the visualized right and left wrists. 3. Facilitated radiotracer is visualized in the right posterior ninth-11th ribs, the left posterior 11th rib. 3. The remaining skeletal structures are scintigraphically unremarkable with normal-appearing renal images and urinary bladder activity identified. NM/Bone Scan Whole Body IMPRESSION: 1. The increase in tracer uptake defined bilateral posterior ribs is most consistent with trauma-fracture. Plain film radiography correlation may be of benefit. 2. Facilitated uptake noted in the left proximal humerus, fourth thoracic vertebra, the bilateral sacroiliac joints, the right superior anterior acetabulum is most consistent with skeletal metastatic disease. 3. Degenerative arthritis is defined in the bilateral shoulders, both knee articulations, the right and left wrists. Electronically Signed: Anthony Chen DO at 22:28 EDT ,
[2023-01-25] MEDS: 0.9% Saline Lock 10 ML Syringe IV (07:40)
== END | disposition home or self-care (01) ==
LOC: NM 07:18
PROVIDERS: PCP Family Medicine; Referring Provider Internal Medicine Hematology & Oncology; Visit Provider Internal Medicine Hematology & Oncology
DX: C61 Malignant neoplasm of prostate (principal)
CPT/HCPCS: 78306; A9503; A4216

== ENCOUNTER → 2023-07-29 | Outpatient (CLI) | payer MEDICARE, OTHER, SELFPAY ==
--- NOTE | 2023-07-29 07:18 | NM_ITS ---
CLINICAL: Male, 68 years old. PROSTATE CANCER, FELL IN APRIL AND HURT LEFT KNEE. -- NO OTHER PATIENT COMPLAINTS WHOLE BODY NUCLEAR BONE SCAN TECHNIQUE: Following the IV administration of 27 mCi of Tc MDP, whole body bone imaging was performed with a gamma camera following a three hour delay. COMPARISON STUDIES : NM - comparison is made with prior study January 25, 2023. CR - Not available for review at this time. CT - Not available for review at this time. MR - Not available for review at this time. US - Not available for review at this time. FINDINGS: There is increased radiopharmaceutical uptake in the bilateral sacroiliac joints as well as in the superior right acetabulum and the fourth thoracic vertebrae on the left side. This is unchanged in keeping with metastatic deposits. Focal uptake in both posterior right and left ribs. There is been essentially no change. NM/Bone Scan Whole Body IMPRESSION: Stable examination. Electronically Signed: Gideon Ibarra MD at 16:02 EDT ,
[2023-07-29] MEDS: 0.9 % NaCl (Sterile) Posiflush 10 mL IV (07:30)
== END | disposition home or self-care (01) ==
LOC: NM 07:18
PROVIDERS: PCP Family Medicine; Referring Provider Internal Medicine Hematology & Oncology; Visit Provider Internal Medicine Hematology & Oncology
DX: C61 Malignant neoplasm of prostate (principal)
CPT/HCPCS: 78306; A9503; A4216

== ENCOUNTER → 2024-02-03 | Outpatient (CLI) | payer MEDICARE, OTHER, SELFPAY ==
--- NOTE | 2024-02-03 09:04 | NM_ITS ---
CLINICAL: 68-year-old male with history of primary prostate carcinoma. WHOLE BODY 99m Tc MDP RADIONUCLIDE BONE SCINTIGRAPHY COMPARISON: Previous whole body bone scintigraphy study dated 07/29/2023 FINDINGS: Following the intravenous administration of 25.6 mCi of 99m Tc MDP, whole body bone images reveal: 1. Persistent increased tracer uptake is noted in the right superior acetabulum, the fourth thoracic vertebra posteriorly on the left, the left proximal humerus, the bilateral sacroiliac joints. 2. Facilitated MDP is identified in the bilateral knees, the right and left shoulder articulations, the visualized left wrist. 3. Multifocal increased radiopharmaceutical is persistently visualized in the bilateral posterior ribs with maintenance of a longitudinal linear presentation. 4. The remaining skeletal structures are scintigraphically unremarkable with normal-appearing renal images and urinary bladder activity identified. NM/Bone Scan Whole Body IMPRESSION: 1. The increase in tracer uptake noted in the right hip, fourth thoracic vertebra, the left proximal humerus and bilateral sacroiliac joints remain consistent with probable osteoblastic turnover attributed to skeletal metastatic disease. 2. Unchanged uptake in the bilateral posterior ribs most likely represent trauma-fracture. 3. Degenerative arthropathy is persistently expressed in the bilateral knees, both shoulders and visualized left wrist. 4. Overall compared to the previous whole body bone scintigraphy study dated 07/29/2023, there is minimal interval change. Electronically Signed: Anthony Chen DO at 22:18 EDT ,
== END | disposition home or self-care (01) ==
PROVIDERS: PCP Family Medicine; Referring Provider Internal Medicine Hematology & Oncology; Visit Provider Internal Medicine Hematology & Oncology
DX: C61 Malignant neoplasm of prostate (principal); C79.51 Secondary malignant neoplasm of bone; C77.2 Secondary and unspecified malignant neoplasm of intra-abdominal lymph nodes
CPT/HCPCS: 78306; A9503

== ENCOUNTER → 2024-07-27 | Outpatient (CLI) | payer MEDICARE, OTHER, SELFPAY ==
--- NOTE | 2024-07-27 07:54 | NM_ITS ---
PROCEDURE: BONE SCAN WHOLE BODY REASON FOR EXAM: Prostate cancer. TECHNIQUE: RADIOPHARMACEUTICAL: 26.9 mCi Technetium-99m MDP IV COMPARISON: CORRELATION WITH EXISTING RELEVANT IMAGING STUDIES (i.e. x-ray, MRI, CT, etc.): Comparison is made with prior bone scan dated July 29, 2023. FINDINGS: Persistent uptake in both sacroiliac joints. This is essentially unchanged. Persistent uptake in the proximal portion of the left humerus. Interval improvement in the uptake seen in the right hip joint. Stable increased uptake at the level of the T4 vertebrae. Stable increased uptake in the posterior lower ribs bilaterally suggestive of trauma. NM/Bone Scan Whole Body IMPRESSION: Essentially stable examination except for improvement of the uptake at the leve l of the right acetabulum. Reading Location: [place] [id number]
== END | disposition home or self-care (01) ==
LOC: NM 07:50
PROVIDERS: PCP Family Medicine; Referring Provider Nurse Practitioner Family; Visit Provider Nurse Practitioner Family
DX: C61 Malignant neoplasm of prostate (principal); C79.51 Secondary malignant neoplasm of bone
CPT/HCPCS: 78306; A9503

== ENCOUNTER → 2025-03-01 | Outpatient (CLI) | payer MEDICARE, OTHER, SELFPAY ==
--- NOTE | 2025-03-01 08:54 | NM_ITS ---
PROCEDURE: BONE SCAN WHOLE BODY 03/01/2025 REASON FOR EXAM: PROSTATE CA; MET TO BONE- ASSESS RESPONSE TO TX TECHNIQUE: Procedure Code: NMBO Modality: NM Procedure: BONE SCAN WHOLE BODY Whole-body bone scan with anterior and posterior views. Imaging at 3.5 hours. RADIOPHARMACEUTICAL: 26.8 mCi Technetium-99m MDP IV COMPARISON: Prior study dated July 27, 2024. FINDINGS: Bones: Stable appearance of both sacroiliac joints. Stable appearance of the knee joints more prominent on the left side suggestive of osteoarthritis. Stable focal uptake in both shoulder joints as well as in the proximal left humerus. This is unchanged. Once again, low-level uptake is seen along the posterior aspect of the right mid and lower ribs as well as on the left side. Kidneys: Unremarkable. NM/Bone Scan Whole Body IMPRESSION: Stable examination. Reading Location: [place] [id number]
== END | disposition home or self-care (01) ==
LOC: NM 08:53
PROVIDERS: PCP Family Medicine; Referring Provider Nurse Practitioner Family; Visit Provider Nurse Practitioner Family
DX: C61 Malignant neoplasm of prostate (principal); C79.51 Secondary malignant neoplasm of bone
CPT/HCPCS: 78306; A9503